=== PATIENT | female | born 2000 | race Caucasian/White ===

== ENCOUNTER → 2022-03-18 09:19 | Outpatient (BNVA) | payer MEDICAID, SELFPAY | PROVIDERS: Visit Provider Obstetrics & Gynecology | DX: Z34.90 Encounter for supervision of normal pregnancy, unspecified, unspecified trimester (principal) | CPT/HCPCS: 81000 ==

== ENCOUNTER → 2022-03-27 14:04 | Outpatient (BNVA) | payer MEDICAID, SELFPAY | PROVIDERS: Visit Provider Obstetrics & Gynecology | DX: Z34.00 Encounter for supervision of normal first pregnancy, unspecified trimester (principal) | CPT/HCPCS: 81000; 87081; 87086 ==

== ENCOUNTER 2022-04-06 21:54 | Inpatient (IN) | payer MEDICAID, SELFPAY ==
[2022-04-06] VITALS (21 sets, daily range): BP systolic 132–196; BP diastolic 77–104; PULSE 57–96; RESP 15; TEMP 35.7; BMI 39.4
[2022-04-06 20:39] LABS: Nitrazine Paper, PH Negative
[2022-04-06 21:06] LABS: Basophils % 0.2 %; Eosinophils # 0.1 10^3/uL (0.0-0.8); Hematocrit 34.4 % (37.0-47.0); Hemoglobin 12.1 g/dL (11.5-15.3); Lymphocytes # 1.6 10^3/uL (0.8-4.8); Lymphocytes % 18.9 %; Mean Corpuscular HGB Conc 35.2 g/dL (30.0-36.0); Mean Corpuscular Hemoglobin 29.4 pg (28.0-34.0); Mean Corpuscular Volume 83.7 fl (81-99); Monocytes # 0.8 10^3/uL (0.2-0.9); Monocytes % 9.6 %; Neutrophils # 6.05 10^3/uL (1.8-7.7); Neutrophils % 69.8 %; Nucleated Red Blood Cells % 0 %; Platelet Count 307 10^3/cmm (130-400); Red Blood Count 4.11 10^6/uL (4.1-5.3); White Blood Count 8.7 10^3/uL (4.0-10.0)
[2022-04-06 21:10] LABS: Add Urine Culture? No; Add Urine Microscopic? YES; Bacteria Urine TRACE /hpf; Bilirubin Urine 1+ (Negative); Blood Urine 3+ (Negative); Glucose Urine UA Norm (Normal); Ketones Urine 1+ (Negative); Leukocyte Esterase Urine Negative (Negative); Mucus Urine 1+ /hpf; Nitrate Urine Negative (Negative); Protein Urine 3+ (Negative); Squamous Epithelial Cell Urine 0-4 /hpf (0-5); Urine Appearance SL Hazy (CLEAR); Urine Color Yellow (Yellow); Urobilinogen Urine 4 mg/dL (Negative); WBC Urine 0-4 /hpf (0-5); pH Urine 6 (5-7)
[2022-04-06 21:21] LABS: Alanine Aminotransferase 8 U/L (0-33); Albumin Level 3.3 g/dL (3.5-5.2); Alkaline Phosphatase 140 IU/L (35-105); Aspartate Amino Transferase 14 U/L (0-32); Blood Urea Nitrogen 9 mg/dL (6-20); Calcium 8.7 mg/dL (8.5-10.5); Carbon Dioxide 21 mmol/L (22-29); Chloride 102 mmol/L (98-107); Globulin 2.6 g/dL (1.3-4.6); Glomerular Filtration Rate 280.8 mL/min (90-130); Glucose 75 mg/dL (65-115); Osmolality Calculated 277 mOsm/kg (285-295); Sodium 135 mmol/L (136-145); Total Bilirubin 0.2 mg/dL (0.15-1.2); Total Protein 5.9 g/dL (6.6-8.7); Uric Acid 3.8 mg/dL (2.4-5.7)
[2022-04-06 21:22] LABS: Urine Creatinine 196 mg/dL (28-217)
[2022-04-06 21:33] LABS: UPRO/UCREAT Ratio 2.68 mg/mg CR; Urine Protein Random 525 mg/dL
[2022-04-06] MEDS: labetalol 5 mg/mL SDV 20mL 20 MG IVP (22:23)
[2022-04-06] MEDS: dextrose 5%-lactated ringers 1,000 ML 125 ML IV (22:44)
[2022-04-06] MEDS: magnesium sulfate premix 4 GM/100 ML PREMIX IV (22:44)
[2022-04-06] MEDS: labetalol 5 mg/mL SDV 20mL 40 MG IVP (22:55)
[2022-04-06] MEDS: magnesium sulfate premix 20 GM/500 ML BAG IV (23:04)
[2022-04-07] VITALS (117 sets, daily range): BP systolic 104–179; BP diastolic 55–102; PULSE 63–96; RESP 15–17; TEMP 36.4; O2SAT 99–100
[2022-04-07] MEDS: oxytocin 30 UNIT/500 ML BAG IV (00:03)
[2022-04-07] MEDS: labetalol 5 mg/mL SDV 20mL 40 MG IVP ×2 (01:03→17:55)
[2022-04-07] MEDS: lactated ringers 1,000 ML 999 ML IV (02:15)
--- NOTE | 2022-04-07 02:42 | P.ANESASSM_ITS ---
Pre-Anesthetic Assessment Height/Weight: Height 1.55 m Weight 94.801 kg Temp Pulse Resp BP 96.3 F L 73 15 132/86 04/06/22 20:00 04/07/22 02:30 04/06/22 19:55 04/07/22 02:30 Preop Diagnosis: IUP epidural Familial anesthetic complications: none Was Beta Mayo taken within 24 hours: N/A Was Clonidine taken within 24 hours: N/A Last intake: 1400- currently ice chips Social No alcohol and No tobacco Exam alert and oriented x 3 Airway Submandibular: within normal limits Cervical ROM: within normal limits Mallampati: Class II Dentition: full History/ROS No significant history except as noted Pulmonary None reported CV/HEM Hypertension (Pre-E) None reported Hepatic None reported GI Gastroesophageal Reflux Disease Metabolic None reported Musc/skel None reported Neuropsych None reported Anesthetic Plan Anesthesia: Anesthesia Evaluation and Regional (specify below) Risk of > 500 ml blood loss (7ml/kg in children): No Medications/Allergies Home Medications Medication Instructions Recorded Confirmed Last Taken Type prenat.vits,piyush,wqm-wbkw-lefud 1 tab PO DAILY 04/06/22 04/06/22 3 Days Ago History ~04/03/22 Allergies Allergy/AdvReac Type Severity Reaction Status Date / Time kiwi Allergy Severe ALGY-Swell Verified 04/06/22 20:21 Lip/Tongue/Throat Current Medications Generic Name Dose Route Start Last Admin Trade Name Freq PRN Reason Stop Dose Admin Dextrose/Lactated Ringer's 1,000 mls @ 125 mls/hr 04/06/22 22:00 04/06/22 22:44 Dextrose 5%-Lactated Ringers IV 125 mls/hr .Q8H CLAY Administration Magnesium Sulfate 20 gm in 500 mls @ 50 mls/hr 04/06/22 22:00 04/06/22 23:04 Magnesium Sulfate Premix IV 50 mls/hr .Q10H CLAY Administration Oxytocin 30 unit in 500 mls @ 1 mls/hr 04/06/22 22:00 04/07/22 02:00 Pitocin IV 5 milliunit/min .Q24H CLAY 5 mls/hr Titration Protocol 1 MILLIUNIT/MIN Labetalol HCl 20 mg 04/06/22 21:49 04/06/22 22:23 Labetalol 5 Mg/Ml Sdv 20ml IVP 20 mg PRN PRN Administration HYPERTENSION Protocol Labetalol HCl 40 mg 04/06/22 21:49 04/07/22 01:03 Labetalol 5 Mg/Ml Sdv 20ml IVP 40 mg PRN PRN Administration HYPERTENSION Protocol [facility] Anesthesia Medical History Anxiety Arthritis Depression GERD (gastroesophageal reflux disease) Surgical History History of tonsillectomy and adenoidectomy Benjamin teeth removed Family History Father Diabetes type 2 Grandmother Breast cancer Maternal Family/Other Diabetes Maternal Aunt Mother Bleeding disorder Anemia Denies family history of CAD (coronary artery disease) Clotting disorder Hyperlipidemia Chronic kidney disease (CKD) Cancer Hypertension Thyroid disease Stroke Female Reproductive History : 1 Data Anesthesia : 04/06/22 20:42 04/06/22 20:42 Short CBC 04/06/22 Range/Units 20:42 WBC 8.7 (4.0-10.0) 10^3/uL Hgb 12.1 (11.5-15.3) g/dL Hct 34.4 L (37.0-47.0) % MCV 83.7 (81-99) fl Plt Count 307 (130-400) 10^3/cmm Neut % (Auto) 69.8 % Neut # (Auto) 6.05 (1.8-7.7) 10^3/uL BMP 04/06/22 20:42 Sodium 135 L Potassium 4.0 Chloride 102 Carbon Dioxide 21 L BUN 9 Creatinine 0.3 L Glucose 75 Calcium 8.7 Liver Function 04/06/22 Range/Units 20:42 Total Bilirubin 0.2 (0.15-1.2) mg/dL AST 14 (0-32) U/L ALT 8 (0-33) U/L Alkaline Phosphatase 140 H (35-105) IU/L Albumin 3.3 L (3.5-5.2) g/dL Urine 04/06/22 Range/Units 20:42 Urine Color Yellow (Yellow) Urine Appearance Sl hazy (CLEAR) Urine pH 6 (5-7) Ur Specific [place] 1.020 (1.005-1.030) Urine Protein 3+ H (Negative) Urine Glucose (UA) Norm (Normal) Urine Ketones 1+ H (Negative) Urine Nitrate Negative (Negative) Urine Bilirubin 1+ H (Negative) Ur Leukocyte Esterase Negative (Negative) Urine RBC 5-10 H (0-2) /hpf Urine WBC 0-4 H (0-5) /hpf Cardiac Studies: No Data to Display
--- NOTE | 2022-04-07 03:20 | P.ANES_ITS ---
Anesthesia Procedures Procedure/Date: 04/07/22 Epidural: Time Out Performed: Yes Consents Signed: Procedure Consent Consent: from patient, risks and benefits reviewed and patient agrees to proceed Lumbar Level: L3-L4 Epidural position: sitting Epidural procedure: sterile prep of area, 1% lidocaine to numb the area, 18 g needle, negative for p aresthesia passed, neg for paresthesia, test dose given, 1.5% xylocaine 1:200k epi (2%lido with 1:200k epi from pharmacy), no systemic response, sterile dressing applied, L.U.D. no apparent complications and 0.2% Ropiavacaine @ mls/hr (11) Additional Comments: Neg blood or CSF return. GRAHAM at 7, taped at 13 at skin.
[2022-04-07] MEDS: alum-mag-hydroxide-sime 30 mL UDC PO (04:43)
[2022-04-07] MEDS: ondansetron 2 mg/ML SDV 2 mL 4 MG IVP (04:43)
[2022-04-07 04:59] LABS: Magnesium Level (OB Only) 4.4 mg/dL (5.0-7.5)
--- NOTE | 2022-04-07 06:55 | P.HPUD_ITS ---
Labor & Delivery H&P Update Date of Procedure: April 07, 2022 Date H&P Performed: 03/27/22 H&P update information: I have reviewed H&P completed within last 30 days, I have examined patient prior to procedure, Changes to prior documentation as noted here and H&P is in [facility] EMR on date indicated Changes to previous documentation: Patient came in with concern for spontaneous rupture of membranes however work- up was negative with negative nitrazine and intact membranes palpated however patient's blood pressure was noted to be elevated in the 140s to 160s over 90s to 100's. Patient denied any preeclamptic symptoms. Lab work done was within normal limits except for protein creatinine ratio which is elevated--2.68. This give her the diagnosis of preeclampsia and given that she was 37 weeks and 5 days decision was made to admit patient and induced for preeclampsia at. Magnesium sulfate was started for seizure prophylaxis. Admission Diagnosis: Preop diagnosis: IUP
[2022-04-07] MEDS: dextrose 5%-lactated ringers 1,000 ML 67 ML IV (07:17)
[2022-04-07] MEDS: magnesium sulfate premix 20 GM/500 ML BAG IV ×2 (07:18→17:21)
--- NOTE | 2022-04-07 07:56 | P.PN_ITS ---
Subjective Subjective: Subjective- Ms Patiño is a 22-year-old 1 para 0 at 37 weeks and 6 days who presented to labor and delivery on 04/06/2022 with reports of leaking of fluid. Evaluation for this was negative with negative nitrazine and intact membranes palpated however patient's blood pressure was noted to be elevated in the 140s to 160s over 90s to 100's. Patient denied any preeclamptic symptoms. Lab work done was within normal limits except for protein creatinine ratio which is elevated--2.68. This give her the diagnosis of preeclampsia and given that she was 37 weeks and 5 days decision was made to admit patient and induced for preeclampsia at. Magnesium sulfate was started for seizure prophylaxis. SCDs were placed for DVT prophylaxis. GBS was negative. She received IV labetalol for a total of 3 doses as her blood pressure was in the severe range and with this her blood pressure returned to normal. Pitocin was started for induction of labor after counseling. tracing was category 1 she had no contractions and cervix was 1 cm 50% and -4 station, cephalic. Pitocin was started at midnight. At about 2 AM patient reported having more pain and desired an epidural. At this time her cervix was 2 cm 50% and -3 station. Epidural was placed after which patient was comfortable. Overnight patient's blood pressures overall remain normal and urine output was adequate and she denied any preeclamptic symptoms. Magnesium sulfate level overnight was 4.4 and plan was to repeat it in 4 hours. This morning patient feels fine and other than being a little uncomfortable on the magnesium sulfate has no concerns. She does not feel contractions and denies any other discomfort. Pitocin is at 10 this morning. Objective- Blood pressure-121/65 mmHg Pulse-84 beats per minute Temperature-96.3 Fahrenheit Abdomen-gravid, nontender, obese Sterile vaginal exam-3 cm, 50%, -3, ballotable EFM-120, moderate variability, accelerations present, no decelerations [place]-contractions every 2 to 3 minutes Assessment: 22-year-old 1 para 0 at 37 weeks and 6 days Severe preeclampsia on magnesium sulfate Induction of labor for severe preeclampsia GBS negative Late transfer of care at [address] Tinajero--care in [place] Obesity with a BMI of 39.5 GERD on medication Plan: Continue magnesium sulfate for seizure prophylaxis-follow magnesium levels to ensure it is reached therapeutic levels. -Continue strict I's and O's -IV blood pressure medication as needed per protocol -Continuous EFM and tocometry -Continue SCDs for DVT prophylaxis -Hold Pitocin as she is having adequate contractions and reassess cervix. Vitals/I&O/Wt Last Vital Signs Temp 96.3 F L 04/06/22 20:00 Pulse 86 04/07/22 07:42 Resp 16 04/07/22 07:15 BP 121/65 04/07/22 07:42 Pulse Ox 100 04/07/22 03:13 04/06/22 04/07/22 04/07/22 22:59 06:59 14:59 Intake Total 1890.933 / 1890.933 649.034 / 649.034 Output Total 1433 / 1433 175 / 175 Balance 457.933 / 457.933 474.034 / 474.034 Weight last 48 hrs Weight 209 lb Physical Exam Urinary Catheter Management: Latex Free: Cath Placed During This Visit: yes Reason for Continuing Indwelling Catheter: Accurate Measurement of Urinary Output in Critically Ill Patients Urinary Catheter Date of Insertion: 04/06/22 Data : 04/06/22 20:42 04/06/22 20:42 Attestations Medical Necessity Statement*: Patient will need to stay more than 2 midnights to deliver and recover from delivery Coding Level of Care Code Acute Market Analysis Director for Maribel Schmitt
[2022-04-07 09:57] LABS: Magnesium Level (OB Only) 5.9 mg/dL (5.0-7.5)
[2022-04-07] MEDS: miSOPROStol 100 mcg tablet 25 MCG VAGINAL ×2 (15:14→20:10)
[2022-04-07] MEDS: labetalol 5 mg/mL SDV 20mL 20 MG IVP (17:35)
--- NOTE | 2022-04-07 17:54 | PC.NURSE ---
Called lab regarding magnesium level, Mike in lab states he will get it going.
[2022-04-07 18:13] LABS: Magnesium Level (OB Only) 6.5 mg/dL (5.0-7.5)
[2022-04-07] MEDS: dextrose 5%-lactated ringers 1,000 ML 75 ML IV (22:00)
[2022-04-07 22:26] LABS: Magnesium Level (OB Only) 6.2 mg/dL (5.0-7.5)
[2022-04-08] VITALS (75 sets, daily range): BP systolic 109–178; BP diastolic 55–118; PULSE 64–114; RESP 17–18; TEMP 36.6
[2022-04-08] MEDS: oxytocin 30 UNIT/500 ML BAG IV (00:45)
--- NOTE | 2022-04-08 06:51 | P.PCNOB_ITS ---
Delivery Note: Date of delivery: April 08, 2022 Pre-delivery diagnoses: iup@[id number], induction for severe preeclampsia Post-delivery diagnoses: same Procedure: Delivering Physician: Lior Estimated blood loss (mL): 250 Findings: term male in the ANDRESSA presentation. Large left sulcus tear. Pre-Delivery Course: The patient presented to the hospital with complaint of SROM. Her membranes were intact, however, she had severe blood pressures with a urine protein/creatinine ratio of 2.6. She was admitted and started on pitocin. She was switched to cytotec. She received an epidural for pain management. After 4 doses of cytotec, she had pitocin started. She had SROM and began involuntarily pushing at 7 cm. The baby was having decelerations, which resolved once her cervix was completely dilated. She continued to push. Delivery: The patient had complete cervical dilation and began to push. The head delivered in the ANDRESSA position over an intact perineum under epidural anesthesia. The nose and mouth were bulb suctioned. The shoulders and body delivered atraumatically. The baby was placed onto the mother's abdomen. The cord was clamped and cut. Cord blood was obtained. The placenta delivered spontaneously. It was inspected and found to be intact. Inspection of the perineum revealed a second-degree perineal laceration with a large left sulcus tear. It was repaired in the usual fashion. There was excellent hemostasis after repair. Estimated blood loss 250 mL. Apgars on baby were 7 at 1 minute a nd 9 at 5 minutes. Weight of baby is 6 pounds. Mother and baby were stable post delivery. History History History 1 Term Miscarriages/Ectopic Living Children Coding Level of Care Code Acute Melt Helper for Maribel Schmitt
[2022-04-08] MEDS: lidocaine 2% INJ 20 mL INJECTION (06:58)
[2022-04-08 09:36] LABS: Magnesium Level (OB Only) 6.4 mg/dL (5.0-7.5)
[2022-04-08] MEDS: docusate sodium 100 mg Capsule PO ×2 (09:48→18:35)
[2022-04-08] MEDS: prenatal vitamin Capsule 1 CAP PO (09:48)
[2022-04-08] MEDS: benzocaine-menthol 78 gm Canister 1 SPRAY TOPICAL (09:48)
[2022-04-08] MEDS: lanolin oint 7 gm 1 APPLIC TOPICAL (09:48)
[2022-04-08] MEDS: ibuprofen 800 mg tablet PO ×3 (09:48→21:24)
--- NOTE | 2022-04-08 11:00 | PC.NURSE ---
Pt up to chair at bedside. Mey care performed and gown changed. Bed mattress cover placed and complete linen change. Pt back to bed and holding baby. Instructed pt not to get up without assistance.
[2022-04-08] MEDS: magnesium sulfate premix 20 GM/500 ML BAG IV ×2 (11:25→21:29)
[2022-04-08] MEDS: dextrose 5%-lactated ringers 1,000 ML 75 ML IV (11:25)
--- NOTE | 2022-04-08 16:40 | PC.NURSE ---
pt ambulated to bathroom, torsten care performed, gown and pad/underwear changed. pt back to bed without difficulty. assisted pt to get baby latched to right side with football hold.
--- NOTE | 2022-04-08 16:40 | ANE.PACU2 ---
Inpatient post-anesthesia follow up: Airway intact: Yes Vital signs: Temperature 97.8 F Pulse Rate 97 Respiratory Rate 17 Blood Pressure 129/63 Pulse Oximetry 100 Oxygen Delivery Me thod Room Air Oxygen Flow Rate Fraction of Inspir ed Oxygen Hydration adequate: Yes Nausea and vomiting: No Pain level: 1 Mental status: Baseline
[2022-04-08 17:00] LABS: Magnesium Level (OB Only) 6.7 mg/dL (5.0-7.5)
[2022-04-08 22:00] LABS: Hematocrit 23.6 % (37.0-47.0); Hemoglobin 7.8 g/dL (11.5-15.3); Mean Corpuscular HGB Conc 33.1 g/dL (30.0-36.0); Mean Corpuscular Hemoglobin 29.5 pg (28.0-34.0); Mean Corpuscular Volume 89.4 fl (81-99); Mean Platelet Volume 10.8 fL (7.4-10.4); Platelet Count 304 10^3/cmm (130-400); Red Blood Count 2.64 10^6/uL (4.1-5.3); Red Cell Distribution Width 13.6 % (12.1-15.1)
[2022-04-08 22:35] LABS: Magnesium Level (OB Only) 6.6 mg/dL (5.0-7.5)
[2022-04-09] VITALS (13 sets, daily range): BP systolic 111–159; BP diastolic 56–90; PULSE 71–109; RESP 15–18; TEMP 36.9–37.2; O2SAT 100
[2022-04-09 03:56] LABS: Magnesium Level (OB Only) 6.9 mg/dL (5.0-7.5)
[2022-04-09] MEDS: docusate sodium 100 mg Capsule PO ×2 (09:09→20:24)
[2022-04-09] MEDS: ibuprofen 800 mg tablet PO ×3 (09:09→20:24)
[2022-04-09] MEDS: prenatal vitamin Capsule 1 CAP PO (09:09)
--- NOTE | 2022-04-09 16:47 | PM.PN ---
Subjective Subjective: The patient is doing well. Magnesium sulfate has just been discontinued after 24 hours. Blood pressures have been maki. Vitals/I&O/Wt Last Vital Signs Temp 99.0 F 04/09/22 14:00 Pulse 104 H 04/09/22 15:08 Resp 15 04/09/22 15:08 BP 147/85 04/09/22 15:08 Pulse Ox 100 04/09/22 14:00 O2 Del Method 04/09/22 14:00 04/09/22 04/09/22 04/09/22 06:59 14:59 22:59 Output Total 960 / 3790 400 / 400 Balance -960 / -960.817 -400 / -400 Physical Exam Narrative: The patient has no concerns this morning. Const: COMMON NORMALS: no acute distress, patient oriented x3, no limitations, healthy appearing, alert and well nourished GENERAL APPEARANCE: cooperative, comfortable, well kempt and well developed ORIENTATION/CONSCIOUSNESS: Yes awake, Yes oriented to person, Yes oriented to place and Yes oriented to time Resp: COMMON NORMALS: normal respiratory effort EFFORT & INSPECTION: Yes able to speak in complete sentences GI: COMMON NORMALS: Soft to palpation and non-tender PALPATION: Yes Soft to palpation Extremity: COMMON NORMALS: no calf tenderness Neuro: COMMON NORMALS: patient oriented x3 SENSORIUM/ORIENTATION: Yes alert, Yes oriented to person, Yes oriented to place and Yes oriented to time Psych: COMMON NORMALS: mental status grossly normal, Normal thought process present, cooperative, normal affect and speech normal APPEARANCE: Yes well kempt SPEECH: Yes normal speech THOUGHT PROCESS: Normal thought process present Urinary Catheter Management: Latex Free: Cath Placed During This Visit: yes, but has since been removed by the nurse Reason for Continuing Indwelling Catheter: Decision to DC Catheter Urinary Catheter Date of Insertion: 04/06/22 Date Urinary Catheter Removed: 04/08/22 Time Urinary Catheter Discontinued: 05:45 Ayoub Latex: Cath Placed During This Visit: yes Reason for Continuing Indwelling Catheter: Accurate Measurement of Urinary Output in Critically Ill Patients Urinary Catheter Date of Insertion: 04/08/22 Urinary Catheter Time of Insertion: 07:00 Data : 04/08/22 21:45 04/06/22 20:42 Micro: Microbiology 04/06/22 20:42 Urine Culture - Final Urine,Clean Catch Attestations Medical Necessity Statement*: She will be here for two midnights Coding Level of Care Code Acute Senior Manufacturing Test Engineer for Maribel Schmitt
[2022-04-09] MEDS: NIFEdipine ER (24 hr) 30 mg Tablet PO (17:00)
--- NOTE | 2022-04-10 08:07 | P.DS_ITS ---
Discharge Providers Date of Admission: 04/06/22 21:54 Date of Discharge: April 09, 2022 Attending Provider at Admission: Jaquelin Stauffer MD Attending Provider at Discharge: Ella Tinajero MD Reason for Visit Reason for Visit: POSSIBLE SROM Hospital Course Hospital Course The patient was admitted for induction for severe preeclampsia. She was placed on Mag sulfate. She had spontaneous delivery of a term . The mag sulfate was continued for 24 hours post . Once the magnesium was discontinued, her blood pressures remained in the elevated range. She was started on Procardia 30 mg daily. Blood pressures were normal after medication. She requested discharge that evening. She will follow up for a blood pressure check in 1 week Physical Exam Narrative: The patient has no concerns today. She wants to be discharged. Const: COMMON NORMALS: no acute distress, patient oriented x3, no limitations, healthy appearing, alert and well nourished GENERAL APPEARANCE: cooperative, comfortable, well kempt and well developed ORIENTATION/CONSCIOUSNESS: Yes awake, Yes oriented to person, Yes oriented to place and Yes oriented to time Resp: COMMON NORMALS: normal respiratory effort EFFORT & INSPECTION: Yes able to speak in complete sentences GI: COMMON NORMALS: Soft to palpation and non-tender PALPATION: Yes Soft to palpation Extremity: COMMON NORMALS: no calf tenderness Neuro: COMMON NORMALS: patient oriented x3 SENSORIUM/ORIENTATION: Yes alert, Yes oriented to person, Yes oriented to place and Yes oriented to time Psych: APPEARANCE: Yes well kempt Urinary Catheter Management: Latex Free: Cath Placed During This Visit: yes, but has since been removed by the nurse Reason for Continuing Indwelling Catheter: Decision to DC Catheter Urinary Catheter Date of Insertion: 04/06/22 Date Urinary Catheter Removed: 04/08/22 Time Urinary Catheter Discontinued: 05:45 Ayoub Latex: Cath Placed During This Visit: yes Reason for Continuing Indwelling Catheter: Accurate Measurement of Urinary Output in Critically Ill Patients Urinary Catheter Date of Insertion: 04/08/22 Urinary Catheter Time of Insertion: 07:00 Discharge Data Studies Completed and Pending Laboratory Results WBC 13.0 10^3/uL (4.0-10.0) H 04/08/22 21:45 RBC 2.64 10^6/uL (4.1-5.3) L 04/08/22 21:45 Hgb 7.8 g/dL (11.5-15.3) L 04/08/22 21:45 Hct 23.6 % (37.0-47.0) L 04/08/22 21:45 MCV 89.4 fl (81-99) 04/08/22 21:45 MCH 29.5 pg (28.0-34.0) 04/08/22 21:45 MCHC 33.1 g/dL (30.0-36.0) 04/08/22 21:45 RDW 13.6 % (12.1-15.1) 04/08/22 21:45 Plt Count 304 10^3/cmm (130-400) 04/08/22 21:45 MPV 10.8 fL (7.4-10.4) H 04/08/22 21:45 Neut % (Auto) 69.8 % 04/06/22 20:42 Lymph % (Auto) 18.9 % 04/06/22 20:42 [place] % (Auto) 9.6 % 04/06/22 20:42 Eos % (Auto) 1.0 % 04/06/22 20:42 Baso % (Auto) 0.2 % 04/06/22 20:42 Neut # (Auto) 6.05 10^3/uL (1.8-7.7) 04/06/22 20:42 Lymph # (Auto) 1.6 10^3/uL (0.8-4.8) 04/06/22 20:42 [place] # (Auto) 0.8 10^3/uL (0.2-0.9) 04/06/22 20:42 Eos # (Auto) 0.1 10^3/uL (0.0-0.8) 04/06/22 20:42 Baso # (Auto) 0.0 10^3/uL (0.0-0.1) 04/06/22 20: Nucleated RBC % (auto) 0 % 04/06/22: Nucleated RBCs # 0.0 /100WBC 04/06/22 20:42 Sodium 135 mmol/L (136-145) L 04/06/22 20:42 Potassium 4.0 mmol/L (3.5-5.1) 04/06/22 20:42 Chloride 102 mmol/L (98-107) 04/06/22 20:42 Carbon Dioxide 21 mmol/L (22-29) L 04/06/22 20:42 Anion Gap 16.0 (5-19) 04/06/22 20:42 BUN 9 mg/dL (6-20) 04/06/22 20:42 Creatinine 0.3 mg/dL (0.5-0.9) L 04/06/22 20:42 GFR Calculation 280.8 mL/min (90-130) H 04/06/22 20: Glucose 75 mg/dL (65-115) 04/06/22 20: Calculated Osmolality 277 mOsm/kg (285-295) L 04/06/22 20: Uric Acid 3.8 mg/dL (2.4-5.7) 04/06/22 20: Calcium 8.7 mg/dL (8.5-10.5) 04/06/22 20: Magnesium 6.9 mg/dL (5.0-7.5) 04/09/22 03:09 Total Bilirubin 0.2 mg/dL (0.15-1.2) 04/06/22 20: AST 14 U/L (0-32) 04/06/22 20:42 ALT 8 U/L (0-33) 04/06/22 20:42 Alkaline Phosphatase 140 IU/L (35-105) H 04/06/22 20:42 Total Protein 5.9 g/dL (6.6-8.7) L 04/06/22 20: Albumin 3.3 g/dL (3.5-5.2) L 04/06/22 20: Globulin 2.6 g/dL (1.3-4.6) 04/06/22 20:42 Urine Color Yellow (Yellow) 04/06/22 20:42 Urine Appearance Sl hazy (CLEAR) 04/06/22 20: Urine pH 6 (5-7) 04/06/22 20: Ur Specific [place] 1.020 (1.005-1.030) 04/06/22 20: Urine Protein 3+ (Negative) H 04/06/22 20:42 Urine Glucose (UA) Norm (Normal) 04/06/22 20: Urine Ketones 1+ (Negative) H 04/06/22 20: Urine Blood 3+ (Negative) H 04/06/22 20:42 Urine Nitrate Negative (Negative) 04/06/22 20:42 Urine Bilirubin 1+ (Negative) H 04/06/22 20:42 Urine Urobilinogen 4 mg/dL (Negative) H 04/06/22 20:42 Ur Leukocyte Esterase Negative (Negative) 04/06/22 20:42 Urine RBC 5-10 /hpf (0-2) H 04/06/22 20:42 Urine WBC 0-4 /hpf (0-5) H 04/06/22 20:42 Ur Squamous Epith Cells 0-4 /hpf (0-5) H 04/06/22 20:42 Amorphous Sediment Not Reportable 04/06/22 20:42 Urine Bacteria Trace /hpf (NONE) 04/06/22 20:42 Urine Mucus 1+ /hpf 04/06/22 20:42 U Random Total Protein 525 mg/dL 04/06/22 20:42 Urine Creatinine 196 mg/dL (28-217) 04/06/22 20:42 Protein/Creatinin Ratio 2.68 mg/mg CR 04/06/22 20:42 Vitals Last Vital Signs Temp 98.4 F 04/09/22 20:53 Pulse 94 04/09/22 20:53 Resp 16 04/09/22 20:53 BP 141/71 04/09/22 20:53 Pulse Ox 100 04/09/22 14:00 O2 Del Method 04/09/22 14:00 Discharge Plan Discharge Patient Disposition: Home Prescriptions: New nifedipine 30 mg tablet extended release 30 mg PO DAILY Qty: 30 0RF Continued prenat.vits,piyush,dps-vahc-kpjbw Tablet 1 tab PO DAILY Discharge Orders: Discharge Order (Routine); Ordered 04/09/22 Ordered By: Ella Tinajero Patient Instructions: and Nipple Soreness (GEN), and Breast Engorgement (GEN), and Plugged Ducts (GEN), Preeclampsia During (GEN), Preeclampsia and Eclampsia After Delivery (GEN), OB Discharge Report, OB Food/Drug Interaction Guide, OB Care at Home, Opioid Safety, OB Home Care, OB Proud Parent Packet, OB Vaginal Deliveries - [facility] Discharge Attestations Time Spent in Discharge Care*: less than 30 min Quality Metrics Clinical Quality Measures [ No reported AMI, CVA or VTE this stay] Coding Level of Care Code Acute Chg FW DC note
== END 2022-04-09 22:04 | disposition home or self-care (01) | DRG 807 ==
LOC: OPOB 21:54 → OBGYN 21:54
PROVIDERS: Obstetrics & Gynecology; Admitting Provider Obstetrics & Gynecology; Visit Provider Obstetrics & Gynecology
DX: O14.14 Severe pre-eclampsia complicating childbirth (principal); Z37.0 Single live birth; O76 Abnormality in fetal heart rate and rhythm complicating labor and delivery; O99.62 Diseases of the digestive system complicating childbirth; K21.9 Gastro-esophageal reflux disease without esophagitis; O70.1 Second degree perineal laceration during delivery; O99.214 Obesity complicating childbirth; E66.9 Obesity, unspecified; Z3A.37 37 weeks gestation of pregnancy
CPT/HCPCS: 36415; 51702; 59025; 80053; 81001; 82570; 83735; 83986; 84156; 84550; 85025; 85027; 87086; 99211; J2405; J2795; J3475; J3490

== ENCOUNTER 2022-05-03 20:22 | Emergency (ER) | payer MEDICAID, SELFPAY ==
[2022-05-03 20:28] VITALS: BP 105/69; PULSE 89; RESP 16; TEMP 36.7; O2SAT 100
--- NOTE | 2022-05-03 20:32 | ECG_ITS ---
[facility] Test Date: 2022-05-03 Pat Name: Fariha Patiño Department: Room: Gender: Female Negative Developer: : 2000 Requested By: Christiano Sifuentes Order Number: [id number] Glenny MD: Katie Thompson M.D. Measurements Intervals [place] Rate: 87 P: 31 MA: 150 QRS: 61 QRSD: 86 T: 38 QT: 327 QTc: 395 Interpretive Statements SINUS RHYTHM No previous ECG available for comparison Electronically Signed On 05-04-2022 7:56:59 CDT by Katie Thompson M.D. [email or web address]
--- NOTE | 2022-05-03 21:23 | XRR_ITS ---
PROCEDURE INFORMATION: Exam: XR Chest Exam date and time: 05/03/2022 9:28 PM Age: 22 years old Clinical indication: Pain; Chest pressure; Additional info: Cp TECHNIQUE: Imaging protocol: Radiologic exam of the chest. Views: 1 view. COMPARISON: No relevant prior studies available. FINDINGS: Lungs: Unremarkable. No consolidation. Pleural spaces: Unremarkable. No pleural effusion. No pneumothorax. Heart/Mediastinum: Unremarkable. No cardiomegaly. Bones/joints: Unremarkable. XR/XR chest 1V portable 40004 IMPRESSION: No acute findings.
[2022-05-03 21:31] VITALS: BP 125/72; PULSE 95; RESP 16; O2SAT 100
--- NOTE | 2022-05-03 21:32 | W.ED.CHESTPA ---
HPI - Chest Pain General: Chief Complaint: Chest Pain Stated Complaint: chest and back pain Time Seen by Provider: 05/03/22 21:22 History of Present Illness: Patient is a 22-year-old female comes to the ED with chest pain and back pain. Patient has a history of GERD but is not currently taking any acid reflux medications. Patient also delivered baby back on April 08 and had preeclampsia. patient says her symptoms started at rest around 9:00 this morning. The pain started after she ate breakfast. She said she was having chest pain that was located in the lower middle of her chest that she described as an aching type pain. She was also having pain that radiated into the middle of her back as well. Back pain would worsen when laying in certain positions. She took an ibuprofen this morning and her chest pain and back pain improved greatly. She then took a nap and later in the day the pain came back. She took another ibuprofen at 7 PM and says that her chest pain and back pain has gotten better since she took the ibuprofen. Associated symptoms: Reports dyspnea; Deny abdominal pain, fever(s), nausea, palpitations or vomiting Review of Systems Const: Denies: fever(s), chills or fatigue Eyes: Denies: change in vision or eye discomfort ENMT: Denies: throat pain, odynophagia, nasal discharge or nasal congestion Card: Reports: chest pain; Denies: palpitations, edema, swelling of feet/ankles, dyspnea on exertion or orthopnea Resp: Reports: dyspnea; Denies: productive cough or non-productive cough GI: Denies: abdominal pain, nausea, vomiting, diarrhea, constipation or hematochezia : Denies: flank pain, dysuria or hematuria Musc: Reports: back pain; Denies: neck pain or extremity swelling Skin/Breast: Denies: rash or new lesions Neuro: Denies: headache(s), numbness in extremities or weakness in extremities PFSH ED PFSH: Medical History Anxiety Arthritis Depression GERD (gastroesophageal reflux disease) Surgical History History of tonsillectomy and adenoidectomy [place] teeth removed Family History Father Diabetes type 2 Grandmother Breast cancer Maternal Family/Other Diabetes Maternal Aunt Mother Bleeding disorder Anemia Denies family history of CAD (coronary artery disease) Clotting disorder Hyperlipidemia Chronic kidney disease (CKD) Cancer Hypertension Thyroid disease Stroke Physical Exam Const: COMMON NORMALS: no acute distress, patient oriented x3 and alert GENERAL APPEARANCE: cooperative and comfortable HENMT: COMMON NORMALS: normocephalic HEAD & SCALP: normocephalic MOUTH: Normal oral and palatal mucosa present THROAT: posterior oropharynx normal and uvula midline Neck/C-Spine: COMMON NORMALS: supple GENERAL: Yes normal visual inspection Resp: COMMON NORMALS: normal respiratory effort, No retractions, No use of accessory muscles and clear to auscultation bilaterally AUSCULTATION: clear to auscultation bilaterally Cardio: COMMON NORMALS: regular rate, regular rhythm, S1 normal heart sound present, S2 normal heart sound present, No gallops present (Cardio), No clicks present (Cardio), No murmurs present (Cardio) and Peripheral pulses 2+ throughout RATE: regular rate RHYTHM: regular rhythm HEART SOUNDS: S1 normal heart sound present and S2 normal heart sound present PERIPHERAL PULSES: Peripheral pulses 2+ throughout GI: COMMON NORMALS: Normal to inspection, nondistended, normoactive bowel sounds present, Soft to palpation, non-tender and no masses PALPATION: Yes Soft to palpation : COMMON NORMALS: Yes no CVA tenderness BLADDER/KIDNEY EXAM: Yes no CVA tenderness Back/Pelvis: COMMON NORMALS: no CVA tenderness Extremity: COMMON NORMALS: normal to inspection Neuro: COMMON NORMALS: patient oriented x3 SENSORIUM/ORIENTATION: Yes alert GAIT: Yes Normal gait present Skin: GENERAL SKIN EXAM: dry skin Course ED course: After patient received GI cocktail her symptoms of chest pain and back pain resolved completely. She has no more chest pain here in the ED. She feels a lot better and is ready to be discharged home. Vital Signs: Vital signs: Vital Signs Temperature 98.0 F 05/03/22 20:28 Pulse Rate 94 05/03/22 23:10 Respiratory Rate 16 05/03/22 23:10 Blood Pressure 121/69 05/03/22 23:10 Pulse Oximetry 100 05/03/22 23:10 Oxygen Delivery Me thod 05/03/22 21:31 MDM - Chest Pain Medical Decision Making Patient is a 22-year-old female comes to the ED with chest pain and back pain. Patient has a history of GERD but is not currently taking any acid reflux medications. Patient also delivered baby back on April 08 and had preeclampsia. Patient says her symptoms started at rest around 9:00 this morning. The pain started after she ate breakfast. Vitals are stable. Patient appears in no acute distress or pain. Rest of exam is benign. Hemoglobin 8.5 and the rest of CBC and CMP were unremarkable. Her hemoglobin back on April 08, 2022 was 7.8 so it has increased some. Troponins negative. Chest x-ray showed no acute findings. EKG showed no ST segment elevation or depression seen. Patient was given GI cocktail and her symptoms completely resolved and she felt a lot better. Patient was unaware of her hemoglobin levels and did note that she feels very easily fatigued patient does not have a PCP currently so I put in a referral for patient to be set up with a PCP for further evaluation management of anemia. Patient was diagnosed with noncardiac chest pain and anemia and was discharged home with a prescription for ferrous sulfate tablets. Strict return ED precautions given. Patient understood and agreed with plan. Lab Data I reviewed the patient's lab results. : 05/03/22 21:29 05/03/22 21: Radiology Impressions Chest X-Ray 05/03/22: IMPRESSION: No acute findings. Laboratory Results WBC 9.9 10^3/uL (4.0-10.0) 05/03/22: RBC 3.25 10^6/uL (4.1-5.3) L 05/03/22: Hgb 8.5 g/dL (11.5-15.3) L 05/03/22: Hct 28.0 % (37.0-47.0) L 05/03/22: MCV 86.2 fl (81-99) 05/03/22: MCH 26.2 pg (28.0-34.0) L 05/03/22: MCHC 30.4 g/dL (30.0-36.0) 05/03/22: RDW 13.2 % (12.1-15.1) 05/03/22: Plt Count 425 10^3/cmm (130-400) H 05/03/22: MPV 9.7 fL (7.4-10.4) 05/03/22: Neut % (Auto) 75.5 % 05/03/22: Lymph % (Auto) 15.6 % 05/03/22: [place] % (Auto) 7.4 % 05/03/22: Eos % (Auto) 0.9 % 05/03/22: Baso % (Auto) 0.2 % 05/03/22 Neut # (Auto) 7.43 10^3/uL (1.8-7.7) 05/03/22: Lymph # (Auto) 1.5 10^3/uL (0.8-4.8) 05/03/22 [place] # (Auto) 0.7 10^3/uL (0.2-0.9) 05/03/22: Eos # (Auto) 0.1 10^3/uL (0.0-0.8) 05/03/22: Baso # (Auto) 0.0 10^3/uL (0.0-0.1) 05/03/22: Nucleated RBC % (auto) 0 % 05/03/22 Nucleated RBCs # 0.0 /100WBC 05/03/22: Sodium 137 mmol/L (136-145) 05/03/22: Potassium 4.3 mmol/L (3.5-5.1) 05/03/22: Chloride 101 mmol/L (98-107) 05/03/22 Carbon Dioxide 25 mmol/L (22-29) 05/03/22: Anion Gap 15.3 (5-19) 05/03/22: BUN 9 mg/dL (6-20) 05/03/22: Creatinine 0.6 mg/dL (0.5-0.9) 05/03/22 GFR Calculation 126.2 mL/min (90-130) 05/03/22: Glucose 89 mg/dL (65-115) 05/03/22 Calculated Osmolality 282 mOsm/kg (285-295) L 05/03/22 Calcium 9.4 mg/dL (8.5-10.5) 05/03/22 21:29 Total Bilirubin 0.3 mg/dL (0.15-1.2) 05/03/22 21:29 AST 24 U/L (0-32) 05/03/22 21:29 ALT 15 U/L (0-33) 05/03/22 21:29 Alkaline Phosphatase 105 U/L (35-105) 05/03/22 21:29 Troponin T Baseline 8 ng/L (0-10) 05/03/22 21:29 Total Protein 6.6 g/dL (6.6-8.7) 05/03/22 21:29 Albumin 4.1 g/dL (3.5-5.2) 05/03/22 21: Globulin 2.5 g/dL (1.3-4.6) 05/03/22 21:29 HCG, Qual Negative (Negative) 05/03/22 21:29 EKG Data EKG 1: EKG interpretation date: 05/03/22 Interpretation: Normal sinus rhythm, 87 bpm, no ST segment elevation or depression seen. Discharge Plan Discharge Patient Disposition: Home Clinical Impression: Non-cardiac chest pain Anemia Qualifiers: Anemia type: unspecified type Qualified Code(s): D64.9 - Anemia, unspecified Condition: Stable Prescriptions: New ferrous sulfate 325 mg (65 mg iron) tablet,delayed release (DR/EC) 325 mg PO DAILY Qty: 20 0RF No Action nifedipine 30 mg tablet extended release 30 mg PO DAILY Qty: 30 0RF Discharge Orders: Discharge ED (Routine); Ordered 05/03/22 Ordered By: Christiano Sifuentes Discharge Diet: Regular Discharge Activity: Increase activity as tolerated Patient Instructions: Anemia (ED), Noncardiac Chest Pain (ED) Activity Restrictions/Additional Instructions: Follow-up with medical provider as directed. Case management should contact you in the next several days set up appointment with a primary care physician for further evaluation of anemia. Take medications as prescribed. Return to the ER or your medical provider if condition worsens. Please read and understand discharge instructions. Thank you for choosing [facility] for your healthcare needs today. Please realize this is an emergency room and that we are providing you with a medical screening exam and this may not be complete and all inclusive of all the testing and or work up that you may need to determine your ailment or severity of your illness. It is very important that you follow up as instructed or that you return to the Emergency Department should you have concerns or if your condition changes or worsens in any way. Coding Level of Care Code ED Wound Nurse for Maribel Schmitt Exam Comprehensive
[2022-05-03 21:39] LABS: Basophils % 0.2 %; Eosinophils # 0.1 10^3/uL (0.0-0.8); Eosinophils % 0.9 %; Hemoglobin 8.5 g/dL (11.5-15.3); Lymphocytes # 1.5 10^3/uL (0.8-4.8); Lymphocytes % 15.6 %; Mean Corpuscular HGB Conc 30.4 g/dL (30.0-36.0); Mean Corpuscular Hemoglobin 26.2 pg (28.0-34.0); Mean Corpuscular Volume 86.2 fl (81-99); Mean Platelet Volume 9.7 fL (7.4-10.4); Monocytes # 0.7 10^3/uL (0.2-0.9); Monocytes % 7.4 %; Neutrophils # 7.43 10^3/uL (1.8-7.7); Neutrophils % 75.5 %; Nucleated Red Blood Cells % 0 %; Platelet Count 425 10^3/cmm (130-400); Red Blood Count 3.25 10^6/uL (4.1-5.3); Red Cell Distribution Width 13.2 % (12.1-15.1); White Blood Count 9.9 10^3/uL (4.0-10.0)
[2022-05-03 21:54] LABS: HCG, Serum Qual Negative (Negative)
[2022-05-03] MEDS: lidocaine 2% viscous 15 ML, aluminum-mag hydrox-simethicon 30 ML, sucralfate oral liq 1 GM PO (22:04)
[2022-05-03 22:05] LABS: Alanine Aminotransferase 15 U/L (0-33); Albumin Level 4.1 g/dL (3.5-5.2); Alkaline Phosphatase 105 U/L (35-105); Anion Gap 15.3 (5-19); Aspartate Amino Transferase 24 U/L (0-32); Blood Urea Nitrogen 9 mg/dL (6-20); Calcium 9.4 mg/dL (8.5-10.5); Carbon Dioxide 25 mmol/L (22-29); Chloride 101 mmol/L (98-107); Globulin 2.5 g/dL (1.3-4.6); Glomerular Filtration Rate 126.2 mL/min (90-130); Glucose 89 mg/dL (65-115); Osmolality Calculated 282 mOsm/kg (285-295); Potassium 4.3 mmol/L (3.5-5.1); Sodium 137 mmol/L (136-145); Total Bilirubin 0.3 mg/dL (0.15-1.2); Total Protein 6.6 g/dL (6.6-8.7)
[2022-05-03 22:09] LABS: Troponin(5th) Baseline 8 ng/L (0-10)
[2022-05-03 22:45] VITALS: BP 118/68; PULSE 92; RESP 17; O2SAT 100
[2022-05-03 23:10] VITALS: BP 121/69; PULSE 94; RESP 16; O2SAT 100
--- NOTE | 2022-05-05 10:52 | DCPLANNER ---
post office manager had message to speak with patient about getting established with a primary care physician. post office manager unable to speak with patient at this time.
== END 2022-05-03 23:12 | disposition home or self-care (01) ==
PROVIDERS: Emergency Provider Physician Assistant
DX: R07.89 Other chest pain (principal); D64.9 Anemia, unspecified
CPT/HCPCS: 71045; 80053; 84484; 84703; 85025; 93005; 99285

== ENCOUNTER 2022-12-26 23:14 | Emergency (ER) | payer MEDICAID, SELFPAY ==
[2022-12-26 23:29] VITALS: BP 123/72; PULSE 127; RESP 17; TEMP 37.5; O2SAT 97
[2022-12-26 23:31] VITALS: BMI 37.0
--- NOTE | 2022-12-27 01:12 | XRR_ITS ---
PROCEDURE INFORMATION: Exam: XR Chest Exam date and time: 12/27/2022 1:54 AM Age: 22 years old Clinical indication: Cough TECHNIQUE: Imaging protocol: Radiologic exam of the chest. Views: 1 view. COMPARISON: CR XR chest 1V portable [id number] 05/03/2022 9:28 PM FINDINGS: Lungs: Unremarkable. No consolidation. Pleural spaces: Unremarkable. No pleural effusion. No pneumothorax. Heart/Mediastinum: Unremarkable. No cardiomegaly. Bones/joints: Unremarkable. XR/XR chest 1V portable [id number] IMPRESSION: No acute findings.
[2022-12-27 01:35] VITALS: BP 109/68; O2SAT 97
--- NOTE | 2022-12-27 01:37 | ED_ITS ---
Documented by User: VICENTE Cueva 12/27/22 03:37 HPI - General Adult General: Chief complaint: General Medical Stated complaint: flu like symptoms, 24 weeks Time Seen by Provider: 12/27/22 01:11 History of Present Illness: Patient is a 22-year-old female is currently 24 weeks comes to the ED with upper respiratory symptoms. Symptoms started this morning when she woke up. She has been having nasal drainage and congestion, dry cough, chills and body aches. She had 1 episode of emesis today. Patient admits to not drinking a lot of fluids today either. Denies any related complaints. Denies any fevers, vaginal bleeding, vaginal discharge, dysuria or hematuria. Associated symptoms: Reports nausea and vomiting (1 episode of emesis); Deny chest pain, dyspnea, headache(s), rash or palpitations Review of Systems Const: Reports: chills and body aches; Denies: fever(s) or fatigue Eyes: Denies: change in vision or eye discomfort ENMT: Reports: nasal discharge and nasal congestion; Denies: throat pain or odynophagia Card: Denies: chest pain, palpitations, edema, swelling of feet/ankles, dyspnea on exertion or orthopnea Resp: Reports: non-productive cough; Denies: dyspnea or productive cough GI: Reports: nausea and vomiting (1 episode of emesis); Denies: abdominal pain, diarrhea, constipation or hematochezia : Denies: flank pain, dysuria or hematuria Musc: Denies: neck pain, back pain or extremity swelling Skin/Breast: Denies: rash or new lesions Neuro: Denies: headache(s), numbness in extremities or weakness in extremities PFSH ED PFSH: Medical History Anxiety Arthritis Depression GERD (gastroesophageal reflux disease) Surgical History History of tonsillectomy and adenoidectomy [place] teeth removed Family History Father Diabetes type 2 Grandmother Breast cancer Maternal Family/Other Diabetes Maternal Aunt Mother Bleeding disorder Anemia Denies family history of CAD (coronary artery disease) Clotting disorder Hyperlipidemia Chronic kidney disease (CKD) Cancer Hypertension Thyroid disease Stroke Physical Exam Const: COMMON NORMALS: patient oriented x3 and alert GENERAL APPEARANCE: cooperative HENMT: COMMON NORMALS: normocephalic HEAD & SCALP: normocephalic MOUTH: Normal oral and palatal mucosa present THROAT: posterior oropharynx normal and uvula midline Neck/C-Spine: COMMON NORMALS: supple GENERAL: Yes normal visual inspection Resp: COMMON NORMALS: normal respiratory effort, No retractions, No use of accessory muscles and clear to auscultation bilaterally EFFORT & INSPECTION: Yes Actively coughing dry AUSCULTATION: clear to auscultation bilaterally Cardio: COMMON NORMALS: regular rate, regular rhythm, S1 normal heart sound present, S2 normal heart sound present, No gallops present (Cardio), No clicks present (Cardio), No murmurs present (Cardio) and Peripheral pulses 2+ throughout RATE: regular rate RHYTHM: regular rhythm HEART SOUNDS: S1 normal heart sound present and S2 normal heart sound present PERIPHERAL PULSES: Peripheral pulses 2+ throughout GI: COMMON NORMALS: Normal to inspection, nondistended, normoactive bowel sounds present, Soft to palpation, non-tender and no masses PALPATION: Yes Soft to palpation : COMMON NORMALS: Yes no CVA tenderness BLADDER/KIDNEY EXAM: Yes no CVA tenderness Back/Pelvis: COMMON NORMALS: no CVA tenderness Extremity: COMMON NORMALS: normal to inspection Neuro: COMMON NORMALS: patient oriented x3 SENSORIUM/ORIENTATION: Yes alert GAIT: Yes Normal gait present Skin: GENERAL SKIN EXAM: dry skin Course ED course: Bedside ultrasound was performed on patient and baby was visualized and was moving. Heart rate at around 160 bpm. Vital Signs: Vital signs: Vital Signs Temperature 99.5 F 12/26/22 23:29 Pulse Rate 101 H 12/27/22 03:45 Respiratory Rate 16 12/27/22 03:45 Blood Pressure 109/68 12/27/22 01:35 Pulse Oximetry 96 12/27/22 03:45 Oxygen Delivery Me thod Room Air 12/27/22 01:35 MDM - General Adult Medical Decision Making Patient is a 22-year-old female is currently 24 weeks comes to the ED w ith upper respiratory symptoms. Symptoms started this morning when she woke up. She has been having nasal drainage and congestion, dry cough, chills and body aches. She had 1 episode of emesis today. Patient admits to not drinking a lot of fluids today either. Denies any related complaints. Denies any fevers, vaginal bleeding, vaginal discharge, dysuria or hematuria. Patient's pulse is 127 and the rest of her vitals are stable and she is afebrile. Patient appears nontoxic in no acute distress. Lungs are clear to auscultation bilaterally but patient is coughing all throughout exam. Hemoglobin of 9.6 the rest of CBC and CMP are unremarkable. Influenza negative. COVID-positive. Chest x-ray showed no pneumonia. Bedside ultrasound was performed on patient and baby was visualized and was moving. Heart rate at around 160 bpm. UA showed possible UTI. Patient was given 2 L of IV fluids and her heart rate went down to 100 bpm. She was stable for discharge home and diagnosed with COVID, UTI and anemia. She was sent home with a prescription for Keflex. Told to follow-up with her PCP/WINDING INSPECTOR doctor in the next week for reevaluation return to ED precautions given. Patient understood and agreed with plan. Lab Data I reviewed the patient's lab results. 12/27/22 01:46 12/27/22 01:46 Radiology Impressions Chest X-Ray 12/27/22 01:12 IMPRESSION: No acute findings. Laboratory Results WBC 7.2 10^3/uL (4.0-10.0) 12/27/22 01:46 RBC 3.92 10^6/uL (4.1-5.3) L 12/27/22 01:46 Hgb 9.6 g/dL (11.5-15.3) L 12/27/22 01:46 Hct 30.6 % (37.0-47.0) L 12/27/22 01:46 MCV 78.1 fl (81-99) L 12/27/22 01:46 MCH 24.5 pg (28.0-34.0) L 12/27/22 01:46 MCHC 31.4 g/dL (30.0-36.0) 12/27/22 01:46 RDW 16.2 % (12.1-15.1) H 12/27/22 01:46 Plt Count 259 10^3/cmm (130-400) 12/27/22 01:46 MPV 9.8 fL (7.4-10.4) 12/27/22 01:46 Neut % (Auto) 83.1 % 12/27/22 01:46 Lymph % (Auto) 5.7 % 12/27/22 01:46 Dickens % (Auto) 10.6 % 12/27/22 01:46 Eos % (Auto) 0.1 % 12/27/22 01:46 Baso % (Auto) 0.1 % 12/27/22 01:46 Neut # (Auto) 6.01 10^3/uL (1.8-7.7) 12/27/22 01:46 Lymph # (Auto) 0.4 10^3/uL (0.8-4.8) L 12/27/22 01:46 Dickens # (Auto) 0.8 10^3/uL (0.2-0.9) 12/27/22 01:46 Eos # (Auto) 0.0 10^3/uL (0.0-0.8) 12/27/22 01:46 Baso # (Auto) 0.0 10^3/uL (0.0-0.1) 12/27/22 01:46 Nucleated RBC % (auto) 0 % 12/27/22 01:46 Nucleated RBCs # 0.0 /100WBC 12/27/22 01:46 Sodium 132 mmol/L (136-145) L 12/27/22 01:46 Potassium 3.3 mmol/L (3.5-5.1) L 12/27/22 01:46 Chloride 102 mmol/L (98-107) 12/27/22 01:46 Carbon Dioxide 18 mmol/L (22-29) L 12/27/22 01:46 Anion Gap 15.3 (5-19) 12/27/22 01:46 BUN 3 mg/dL (6-20) L 12/27/22 01:46 Creatinine 0.4 mg/dL (0.5-0.9) L 12/27/22 01:46 GFR Calculation 201.5 mL/min (90-130) H 12/27/22 01:46 Glucose 84 mg/dL (65-115) 12/27/22 01:46 Calculated Osmolality 270 mOsm/kg (285-295) L 12/27/22 01:46 Calcium 8.4 mg/dL (8.5-10.5) L 12/27/22 01:46 Total Bilirubin 0.2 mg/dL (0.15-1.2) 12/27/22 01:46 AST 16 U/L (0-32) 12/27/22 01:46 ALT 14 U/L (0-33) 12/27/22 01:46 Alkaline Phosphatase 63 U/L (35-105) 12/27/22 01:46 Total Protein 6.4 g/dL (6.6-8.7) L 12/27/22 01:46 Albumin 3.5 g/dL (3.5-5.2) 12/27/22 01:46 Globulin 2.9 g/dL (1.3-4.6) 12/27/22 01:46 Urine Color Yellow (Yellow) 12/27/22 02:23 Urine Appearance Clear (CLEAR) 12/27/22 02:23 Urine pH 6.5 (5-7) 12/27/22 02:23 Ur Specific [place] 1.020 (1.005-1.030) 12/27/22 02:23 Urine Protein Neg (Negative) 12/27/22 02:23 Urine Glucose (UA) Norm (Normal) 12/27/22 02:23 Urine Ketones 1+ (Negative) H 12/27/22 02:23 Urine Blood Neg (Negative) 12/27/22 02:23 Urine Nitrate Negative (Negative) 12/27/22 02:23 Urine Bilirubin Neg (Negative) 12/27/22 02:23 Urine Urobilinogen Norm mg/dL (Negative) 12/27/22 02:23 Ur Leukocyte Esterase 1+ (Negative) H 12/27/22 02:23 Urine RBC 0-4 /hpf (0-2) H 12/27/22 02:23 Urine WBC 15-25 /hpf (0-5) H 12/27/22 02:23 Ur Squamous Epith Cells 5-10 /hpf (0-5) H 12/27/22 02:23 Amorphous Sediment Not Reportable 12/27/22 02:23 Urine Bacteria 2+ /hpf (NONE) H 12/27/22 02:23 Urine Mucus 2+ /hpf 12/27/22 02:23 Influenza Type A Ag negative (Negative) 12/27/22 01:19 Influenza Type B Ag negative (Negative) 12/27/22 01:19 SARS-CoV-2 Ag (Rapid) positive (Negative) 12/27/22 01:19 EKG Data EKG 1: EKG interpretation date: 12/27/22 Interpretation: Sinus tachycardia, no ST segment elevation or depression seen. 111 bpm Computer generated interpretation: Chest X-Ray 12/27/22 01:12 IMPRESSION: No acute findings. Discharge Plan Discharge Patient Disposition: Home Clinical Impression: COVID UTI in Qualifiers: Trimester: second trimester Qualified Code(s): O23.42 - Unspecified infection of urinary tract in , second trimester Anemia Qualifiers: Anemia type: unspecified type Qualified Code(s): D64.9 - Anemia, unspecified Condition: Stable Prescriptions: New cephalexin 500 mg capsule 500 mg PO Q6H 7 Days Qty: 28 0RF No Action nifedipine 30 mg tablet extended release 30 mg PO DAILY Qty: 30 0RF ferrous sulfate 325 mg (65 mg iron) tablet,delayed release (DR/EC) 325 mg PO DAILY Qty: 20 0RF Discharge Orders: Discharge ED (Routine); Ordered 12/27/22 Ordered By: Christiano Sifuentes Referrals: Rachana Mederos MD [Primary Care Provider] - Discharge Diet: Regular Discharge Activity: Increase activity as tolerated Patient Instructions: Urinary Tract Infection in (ED), COVID-19 (C oronavirus Disease 2019) (ED) Activity Restrictions/Additional Instructions: Follow-up with medical provider as directed. Take medications as prescribed. Return to the ER or your medical provider if condition worsens. Please read and understand discharge instructions. Thank you for choosing [facility] for your healthcare needs today. Please realize this is an emergency room and that we are providing you with a medical screening exam and this may not be complete and all inclusive of all the testing and or work up that you may need to determine your ailment or severity of your illness. It is very important that you follow up as instructed or that you return to the Emergency Department should you have concerns or if your condition changes or worsens in any way. Coding Level of Care Code ED Instrument Processing Tech for Chg Fwd Documented by User: Jack Christiano Simba, 12/27/22 05:49 HPI - General Adult General: Chief complaint: General Medical Stated complaint: flu like symptoms, 24 weeks Time Seen by Provider: 12/27/22 01:11 COUNT INCLUDES THE [facility] ED PFSH: Medical History Anxiety Arthritis Depression GERD (gastroesophageal reflux disease) Surgical History History of tonsillectomy and adenoidectomy [place] teeth removed Family History Father Diabetes type 2 Grandmother Breast cancer Maternal Family/Other Diabetes Maternal Aunt Mother Bleeding disorder Anemia Denies family history of CAD (coronary artery disease) Clotting disorder Hyperlipidemia Chronic kidney disease (CKD) Cancer Hypertension Thyroid disease Stroke Course Vital Signs: Vital signs: Vital Signs Temperature 99.5 F 12/26/22 23:29 Pulse Rate 101 H 12/27/22 03:45 Respiratory Rate 16 12/27/22 03:45 Blood Pressure 109/68 12/27/22 01:35 Pulse Oximetry 96 12/27/22 03:45 Oxygen Delivery Me thod Room Air 12/27/22 01:35 MDM - General Adult Medical Decision Making Patient is a 22-year-old female is currently 24 weeks comes to the ED with upper respiratory symptoms. Symptoms started this morning when she woke up. She has been having nasal drainage and congestion, dry cough, chills and body aches. She had 1 episode of emesis today. Patient admits to not drinking a lot of fluids today either. Denies any related complaints. Denies any fevers, vaginal bleeding, vaginal discharge, dysuria or hematuria. Patient's pulse is 127 and the rest of her vitals are stable and she is afebrile. Patient appears nontoxic in no acute distress. Lungs are clear to auscultation bilaterally but patient is coughing all throughout exam. Hemoglobin of 9.6 the rest of CBC and CMP are unremarkable. Influenza negative. COVID-positive. Chest x-ray showed no pneumonia. Bedside ultrasound was performed on patient and baby was visualized and was moving. Heart rate at around 160 bpm. UA showed possible UTI. Patient was given 2 L of IV fluids and her heart rate went down to 100 bpm. She was stable for discharge home and diagnosed with COVID, UTI and anemia. She was sent home with a prescription for Keflex. Told to follow-up with her PCP/WINDING INSPECTOR doctor in the next week for reevaluation return to ED precautions given. Patient understood and agreed with plan. This patient was originally seen by Mr. Bear PA-C.? I agree with his history, evaluation, and treatment. Lab Data 12/27/22 01:46 12/27/22 01:46 Radiology Impressions Chest X-Ray 12/27/22 01:12 IMPRESSION: No acute findings. Laboratory Results WBC 7.2 10^3/uL (4.0-10.0) 12/27/22 01:46 RBC 3.92 10^6/uL (4.1-5.3) L 12/27/22 01:46 Hgb 9.6 g/dL (11.5-15.3) L 12/27/22 01:46 Hct 30.6 % (37.0-47.0) L 12/27/22 01:46 MCV 78.1 fl (81-99) L 12/27/22 01:46 MCH 24.5 pg (28.0-34.0) L 12/27/22 01:46 MCHC 31.4 g/dL (30.0-36.0) 12/27/22 01:46 RDW 16.2 % (12.1-15.1) H 12/27/22 01:46 Plt Count 259 10^3/cmm (130-400) 12/27/22 01:46 MPV 9.8 fL (7.4-10.4) 12/27/22 01:46 Neut % (Auto) 83.1 % 12/27/22 01:46 Lymph % (Auto) 5.7 % 12/27/22 01:46 Dickens % (Auto) 10.6 % 12/27/22 01:46 Eos % (Auto) 0.1 % 12/27/22 01:46 Baso % (Auto) 0.1 % 12/27/22 01:46 Neut # (Auto) 6.01 10^3/uL (1.8-7.7) 12/27/22 01:46 Lymph # (Auto) 0.4 10^3/uL (0.8-4.8) L 12/27/22 01:46 Dick[place] # (Auto) 0.8 10^3/uL (0.2-0.9) 12/27/22 01:46 Eos # (Auto) 0.0 10^3/uL (0.0-0.8) 12/27/22 01:46 Baso # (Auto) 0.0 10^3/uL (0.0-0.1) 12/27/22 01:46 Nucleated RBC % (auto) 0 % 12/27/22 01:46 Nucleated RBCs # 0.0 /100WBC 12/27/22 01:46 Sodium 132 mmol/L (136-145) L 12/27/22 01:46 Potassium 3.3 mmol/L (3.5-5.1) L 12/27/22 01:46 Chloride 102 mmol/L (98-107) 12/27/22 01:46 Carbon Dioxide 18 mmol/L (22-29) L 12/27/22 01:46 Anion Gap 15.3 (5-19) 12/27/22 01:46 BUN 3 mg/dL (6-20) L 12/27/22 01:46 Creatinine 0.4 mg/dL (0.5-0.9) L 12/27/22 01:46 GFR Calculation 201.5 mL/min (90-130) H 12/27/22 01:46 Glucose 84 mg/dL (65-115) 12/27/22 01:46 Calculated Osmolality 270 mOsm/kg (285-295) L 12/27/22 01:46 Calcium 8.4 mg/dL (8.5-10.5) L 12/27/22 01:46 Total Bilirubin 0.2 mg/dL (0.15-1.2) 12/27/22 01:46 AST 16 U/L (0-32) 12/27/22 01:46 ALT 14 U/L (0-33) 12/27/22 01:46 Alkaline Phosphatase 63 U/L (35-105) 12/27/22 01:46 Total Protein 6.4 g/dL (6.6-8.7) L 12/27/22 01:46 Albumin 3.5 g/dL (3.5-5.2) 12/27/22 01:46 Globulin 2.9 g/dL (1.3-4.6) 12/27/22 01:46 Urine Color Yellow (Yellow) 12/27/22 02: Urine Appearance Clear (CLEAR) 12/27/22 02:23 Urine pH 6.5 (5-7) 12/27/22 02:23 Ur Specific [place] 1.020 (1.005-1.030) 12/27/22 02:23 Urine Protein Neg (Negative) 12/27/22 02:23 Urine Glucose (UA) Norm (Normal) 12/27/22 02:23 Urine Ketones 1+ (Negative) H 12/27/22 02:23 Urine Blood Neg (Negative) 12/27/22 02: Urine Nitrate Negative (Negative) 12/27/22 02: Urine Bilirubin Neg (Negative) 12/27/22 02:23 Urine Urobilinogen Norm mg/dL (Negative) 12/27/22 02:23 Ur Leukocyte Esterase 1+ (Negative) H 12/27/22 02:23 Urine RBC 0-4 /hpf (0-2) H 12/27/22 02:23 Urine WBC 15-25 /hpf (0-5) H 12/27/22 02:23 Ur Squamous Epith Cells 5-10 /hpf (0-5) H 12/27/22 02:23 Amorphous Sediment Not Reportable 12/27/22 02:23 Urine Bacteria 2+ /hpf (NONE) H 12/27/22 02:23 Urine Mucus 2+ /hpf 12/27/22 02:23 Influenza Type A Ag negative (Negative) 12/27/22 01:19 Influenza Type B Ag negative (Negative) 12/27/22 01:19 SARS-CoV-2 Ag (Rapid) positive (Negative) 12/27/22 01:19 EKG Data EKG 1: Computer generated interpretation: Chest X-Ray 12/27/22 01:12 IMPRESSION: No acute findings. Discharge Plan Discharge Patient Disposition: Home Clinical Impression: COVID UTI in Qualifiers: Trimester: second trimester Qualified Code(s): O23.42 - Unspecified infection of urinary tract in , second trimester Anemia Qualifiers: Anemia type: unspecified type Qualified Code(s): D64.9 - Anemia, unspecified Condition: Stable Prescriptions: New cephalexin 500 mg capsule 500 mg PO Q6H 7 Days Qty: 28 0RF No Action nifedipine 30 mg tablet extended release 30 mg PO DAILY Qty: 30 0RF ferrous sulfate 325 mg (65 mg iron) tablet,delayed release (DR/EC) 325 mg PO DAILY Qty: 20 0RF Discharge Orders: Discharge ED (Routine); Ordered 12/27/22 Ordered By: Christiano Sifuentes Referrals: Rachana Mederos MD [Primary Care Provider] - Discharge Diet: Regular Discharge Activity: Increase activity as tolerated Patient Instructions: Urinary Tract Infection in (ED), COVID-19 (Coronavirus Disease 2019) (ED) Activity Restrictions/Additional Instructions: Follow-up with medical provider as directed. Take medications as prescribed. Return to the ER or your medical provider if condition worsens. Please read and understand discharge instructions. Thank you for choosing [facility] for your healthcare needs today. Please realize this is an emergency room and that we are providing you with a medical screening exam and this may not be complete and all inclusive of all the testing and or work up that you may need to determine your ailment or severity of your illness. It is very important that you follow up as instructed or that you return to the Emergency Department should you have concerns or if your condition changes or worsens in any way. Coding Level of Care Code ED Instrument Processing Tech for Maribel Schmitt
[2022-12-27] MEDS: ondansetron 2 mg/ML SDV 2 mL 4 MG IVP (01:50)
[2022-12-27] MEDS: sodium chloride 0.9% 1,000 ML 999 ML IV ×2 (01:51→02:39)
[2022-12-27 01:54] LABS: Basophils % 0.1 %; Eosinophils % 0.1 %; Hematocrit 30.6 % (37.0-47.0); Hemoglobin 9.6 g/dL (11.5-15.3); Lymphocytes # 0.4 10^3/uL (0.8-4.8); Lymphocytes % 5.7 %; Mean Corpuscular HGB Conc 31.4 g/dL (30.0-36.0); Mean Corpuscular Hemoglobin 24.5 pg (28.0-34.0); Mean Corpuscular Volume 78.1 fl (81-99); Mean Platelet Volume 9.8 fL (7.4-10.4); Monocytes # 0.8 10^3/uL (0.2-0.9); Monocytes % 10.6 %; Neutrophils # 6.01 10^3/uL (1.8-7.7); Neutrophils % 83.1 %; Nucleated Red Blood Cells % 0 %; Platelet Count 259 10^3/cmm (130-400); Red Blood Count 3.92 10^6/uL (4.1-5.3); Red Cell Distribution Width 16.2 % (12.1-15.1); White Blood Count 7.2 10^3/uL (4.0-10.0)
[2022-12-27 02:04] LABS: Influenza A by IFA negative (Negative); Influenza B by IFA negative (Negative); SARS Covid-2 Antigen positive (Negative)
[2022-12-27 02:11] LABS: Alanine Aminotransferase 14 U/L (0-33); Albumin Level 3.5 g/dL (3.5-5.2); Alkaline Phosphatase 63 U/L (35-105); Anion Gap 15.3 (5-19); Aspartate Amino Transferase 16 U/L (0-32); Blood Urea Nitrogen 3 mg/dL (6-20); Calcium 8.4 mg/dL (8.5-10.5); Carbon Dioxide 18 mmol/L (22-29); Chloride 102 mmol/L (98-107); Globulin 2.9 g/dL (1.3-4.6); Glomerular Filtration Rate 201.5 mL/min (90-130); Glucose 84 mg/dL (65-115); Osmolality Calculated 270 mOsm/kg (285-295); Potassium 3.3 mmol/L (3.5-5.1); Sodium 132 mmol/L (136-145); Total Bilirubin 0.2 mg/dL (0.15-1.2); Total Protein 6.4 g/dL (6.6-8.7)
--- NOTE | 2022-12-27 02:14 | ECG_ITS ---
[facility] Test Date: 2022-12-27 Pat Name: Fariha Patiño Department: Room: Gender: Female Resident Director: : [id number] Requested By: Christiano Sifuentes Order Number: [id number] Glenny MD: Jose E Cruz M.D. Measurements Intervals [place] Rate: 111 P: 21 CA: 150 QRS: 54 QRSD: 82 T: 1 QT: 316 QTc: 431 Interpretive Statements SINUS TACHYCARDIA NONSPECIFIC ST & T-WAVE ABNORMALITY Compared to ECG 05/03/2022 20:32:37 T-wave abnormality now present Sinus rhythm no longer present Electronically Signed On 12-27-2022 11:49:29 CDT by Jose E Cruz M.D. [email or web address]
[2022-12-27 02:46] LABS: Bilirubin Urine Neg (Negative); Blood Urine Neg (Negative); Glucose Urine UA Norm (Normal); Ketones Urine 1+ (Negative); Nitrate Urine Negative (Negative); Protein Urine Neg (Negative); Urine Appearance Clear (CLEAR); Urine Color Yellow (Yellow); pH Urine 6.5 (5-7)
[2022-12-27 02:47] LABS: Add Urine Microscopic? YES; Bacteria Urine 2+ /hpf; Leukocyte Esterase Urine 1+ (Negative); RBC Urine 0-4 /hpf (0-2); Urobilinogen Urine Norm (Negative)
[2022-12-27 02:48] LABS: Mucus Urine 2+ /hpf
[2022-12-27 02:50] LABS: Add Urine Culture? Yes; WBC Urine 15-25 /hpf (0-5)
[2022-12-27] MEDS: potassium chloride ER 20 mEq Tablet PO (03:07)
[2022-12-27 03:45] VITALS: PULSE 101; RESP 16; O2SAT 96
== END 2022-12-27 03:47 | disposition home or self-care (01) ==
PROVIDERS: Emergency Provider Physician Assistant; PCP Family Medicine
DX: O98.512 Other viral diseases complicating pregnancy, second trimester (principal); U07.1 COVID-19; O23.42 Unspecified infection of urinary tract in pregnancy, second trimester; N39.0 Urinary tract infection, site not specified; O99.012 Anemia complicating pregnancy, second trimester; D64.9 Anemia, unspecified; Z3A.24 24 weeks gestation of pregnancy
CPT/HCPCS: 71045; 80053; 81001; 85025; 87086; 87426; 87804; 93005; 96361; 96374; 99285; J2405; J7030

== ENCOUNTER 2023-03-02 16:27 | Outpatient (CLI) | payer MEDICAID, SELFPAY ==
[2023-03-02] VITALS (9 sets, daily range): BP systolic 111–127; BP diastolic 57–98; PULSE 71–102; TEMP 36.7–39.9; BMI 35.5
[2023-03-02] MEDS: terbutaline 1 mg/mL INJ 0.25 MG SUBCUT ×2 (17:37→18:36)
[2023-03-02] MEDS: lactated ringers 1,000 ML 999 ML IV (17:50)
== END 2023-03-02 19:36 | disposition home or self-care (01) ==
LOC: OPOB 16:28 → OBGYN 16:30
PROVIDERS: PCP Family Medicine; Visit Provider Family Medicine
DX: O47.9 False labor, unspecified (principal); Z3A.00 Weeks of gestation of pregnancy not specified
CPT/HCPCS: 59025; 96372; 99211; J3105; J7120

== ENCOUNTER 2023-03-03 20:19 | Outpatient (CLI) | payer MEDICAID, SELFPAY ==
[2023-03-03] VITALS (11 sets, daily range): BP systolic 118–121; BP diastolic 65–71; PULSE 102–126; RESP 16; TEMP 35.6–36.7; O2SAT 98–99; BMI 36.7
--- NOTE | 2023-03-03 20:55 | USR_ITS ---
PROCEDURE INFORMATION: Exam: US , Transvaginal Exam date and time: 03/03/2023 9:08 PM Age: 22 years old Clinical indication: Lmp or gestational age (in weeks): 33w 5d; Antepartum complications; Other: Pre-eclampsia, pre-term labor, no vaginal bleeding; ; Additional info: Cervical length LABS AND CLINICAL REPORTS: Gestational age (Established): 33 w 5 d Estimated due date (Established): 04/16/2023 TECHNIQUE: Imaging protocol: Real-time transvaginal obstetrical ultrasound of the maternal pelvis with image documentation. Transvaginal imaging was used for better evaluation of the fetus, adnexa, and/or cervix. COMPARISON: US OB >= 14 weeks fetus [id number] 12/10/2022 1:25 PM FINDINGS: Transvaginal ultrasound pelvis made for evaluation of the cervix length. The cervix is 5.6 cm in length and closed. The is not further evaluated. US/US OB transvaginal [id number] IMPRESSION: Cervix is 5.6 cm in length and closed.
[2023-03-03] MEDS: terbutaline 1 mg/mL INJ 0.25 MG SUBCUT (21:02)
== END 2023-03-03 22:08 | disposition home or self-care (01) ==
LOC: OPOB 20:19 → OBGYN 20:23
PROVIDERS: PCP Family Medicine; Visit Provider Family Medicine
DX: O47.9 False labor, unspecified (principal); Z3A.00 Weeks of gestation of pregnancy not specified
CPT/HCPCS: 59025; 76817; 96372; 99211; J3105

== ENCOUNTER 2023-03-07 23:37 | Emergency (ER) | payer MEDICAID, SELFPAY ==
[2023-03-07 23:44] VITALS: BP 109/70; PULSE 108; RESP 16; TEMP 36.7; O2SAT 98; BMI 35.6
[2023-03-08 01:45] VITALS: PULSE 80
[2023-03-08 02:02] VITALS: BP 108/59; PULSE 88; RESP 16; O2SAT 99
[2023-03-08] MEDS: clindamycin 150 mg Capsule 300 MG PO (02:29)
[2023-03-08] MEDS: diphenhydrAMINE 25 mg Capsule PO (02:30)
[2023-03-08] MEDS: dexamethasone 4 mg Tablet 10 MG PO (02:30)
[2023-03-08 02:35] VITALS: RESP 18; O2SAT 100
[2023-03-08] MEDS: oxyCODONE-APAP 5-325 mg Tablet 1 TAB PO (02:35)
[2023-03-08 02:38] VITALS: BP 108/67; PULSE 84; RESP 18; O2SAT 98
--- NOTE | 2023-03-08 03:55 | W.ED.EXTPRO ---
HPI - Extremity Problem General: Chief complaint: Extremity Problem,Nontraumatic Stated complaint: right foot pain Time Seen by Provider: 03/08/23 01:25 Source: patient History of Present Illness: 23-year-old female who is 34 weeks . She noticed what she believed to be an insect bite or sting on the sole of her right foot a couple of days ago. Since that time, it has become increasingly painful and itchy with a red streak that runs up to the dorsum of her foot near the medial longitudinal arch. No fever. No chills. No systemic symptoms. MD Complaint: other Onset (ago): day(s) Pain Consistency: constant Location: right and other Relieving factors: nothing Exacerbating factors: weight bearing Associated symptoms: Reports rash; Deny arthralgias, chest pain, fever(s) or short of breath Review of Systems Const: Denies: fever(s) ENMT: Denies: throat pain Card: Denies: chest pain Resp: Denies: dyspnea GI: Denies: abdominal pain or vomiting Skin/Breast: Reports: rash PFSH ED PFSH: Medical History Anxiety Arthritis Depression GERD (gastroesophageal reflux disease) Surgical History History of tonsillectomy and adenoidectomy [place] teeth removed Family History Father Diabetes type 2 Grandmother Breast cancer Maternal Family/Other Diabetes Maternal Aunt Mother Bleeding disorder Anemia Denies family history of CAD (coronary artery disease) Clotting disorder Hyperlipidemia Chronic kidney disease (CKD) Cancer Hypertension Thyroid disease Stroke Physical Exam Const: COMMON NORMALS: no acute distress GENERAL APPEARANCE: cooperative; not ill appearing and not frail appearing HENMT: COMMON NORMALS: normocephalic, atraumatic and Normal external nose present HEAD & SCALP: normocephalic and atraumatic FACE & SINUS: normal facial exam and face symmetric NOSE: Normal external nose present Eye: COMMON NORMALS: Equal, round and reactive pupils present and EOMs intact bilaterally PUPIL: Yes Equal, round and reactive pupils present Neck/C-Spine: GENERAL: Yes trachea midline Chest: CHEST: Yes Symmetrical chest wall rise Resp: COMMON NORMALS: normal respiratory effort, No retractions, No use of accessory muscles and clear to auscultation bilaterally AUSCULTATION: clear to auscultation bilaterally Cardio: COMMON NORMALS: regular rate and regular rhythm RATE: regular rate RHYTHM: regular rhythm GI: COMMON NORMALS: Normal to inspection, nondistended, normoactive bowel sounds present Extremity: COMMON NORMALS: no pedal edema Neuro: KRISH COMA SCALE: document GCS findings [place] coma scale eye opening: Spontaneous Krish coma scale verbal response: Orientated Krish coma scale motor response: Obey commands [place] coma scale total score: 15 SENSORY EXAM: Yes extremities (intact) Psych: COMMON NORMALS: speech normal SPEECH: Yes normal speech Skin: NARRATIVE SKIN EXAM: Clear sting or bite ameena to the plantar surface of the right medial midfoot, with surrounding redness, minimal swelling, and lymphangitic streak to the dorsum of her foot. Course Vital Signs: Vital signs: Vital Signs Temperature 98.0 F 03/07/23 23:44 Pulse Rate 84 03/08/23 02:38 Respiratory Rate 18 03/08/23 02:38 Blood Pressure 108/67 03/08/23 02:38 Pulse Oximetry 98 03/08/23 02:38 Oxygen Delivery Me thod Room Air 03/08/23 02:02 MDM - Extremity (Nontraumatic) Medical Decision Making Appears to be an insect bite or sting with surrounding swelling and lymphangitic streaking. We will treat with clindamycin. Benadryl. 1 dose of dexamethasone. Return for any worsening symptoms. Discharge Plan Discharge Patient Disposition: Home Clinical Impression: Bug bite, Acute lymphangitis of foot Condition: Stable Prescriptions: New clindamycin HCl 300 mg capsule 300 mg PO Q6H 7 Days Qty: 28 0RF No Action nifedipine 30 mg tablet extended release 30 mg PO DAILY Qty: 30 0RF ferrous sulfate 325 mg (65 mg iron) tablet,delayed release (DR/EC) 325 mg PO DAILY Qty: 20 0RF Discharge Orders: Discharge ED (Routine); Ordered 03/08/23 Ordered By: Jack Cottrell Referrals: Rachana Mederos MD [Primary Care Provider] - 1-3 days Patient Instructions: Insect Bite or Sting (ED), Lymphangitis (ED), Pain Management Activity Restrictions/Additional Instructions: Return for fever greater than 100 despite 3-4 doses of antibiotics, worsening red streaking despite 3-4 doses of antibiotics, worsening pain despite treatment, other concerning symptoms. You may use Benadryl for itching safely. Coding Level of Care Code ED Industrial Health Engineer for Maribel Schmitt
== END 2023-03-08 02:43 | disposition home or self-care (01) ==
PROVIDERS: Emergency Provider Emergency Medicine; PCP Family Medicine
DX: L03.125 Acute lymphangitis of right lower limb (principal); S90.861A Insect bite (nonvenomous), right foot, initial encounter; W57.XXXA Bitten or stung by nonvenomous insect and other nonvenomous arthropods, initial encounter
CPT/HCPCS: 99283; J8540

== ENCOUNTER 2023-03-19 00:53 | Outpatient (CLI) | payer MEDICAID, SELFPAY ==
[2023-03-19] VITALS (9 sets, daily range): BP systolic 101–110; BP diastolic 55–65; PULSE 56–114; RESP 16; BMI 35.9
[2023-03-19 02:00] LABS: Bacteria Urine 2+ /hpf; Bilirubin Urine 1+ (Negative); Blood Urine Neg (Negative); Glucose Urine UA Norm (Normal); Ketones Urine 1+ (Negative); Leukocyte Esterase Urine 2+ (Negative); Nitrate Urine Negative (Negative); Protein Urine Neg (Negative); RBC Urine 0-4 /hpf (0-2); Urine Appearance Hazy (CLEAR); Urine Color Yellow (Yellow); Urobilinogen Urine 1 mg/dL (Negative); pH Urine 5 (5-7)
[2023-03-19 02:01] LABS: Add Urine Culture? Yes; Calcium Oxalate Crystals Urine 0-4 /hpf; Mucus Urine 2+ /hpf
[2023-03-19 02:09] LABS: Amphetamines Screen Urine Negative (Negative); Barbiturates Screen Urine Negative (Negative); Benzodiazepines Screen Urine Negative (Negative); Cocaine Screen Urine Negative (Negative); Opiate Screen Urine Negative (Negative); PCP Screen Urine Negative (Negative); THC Screen Urine Negative (Negative)
[2023-03-19] MEDS: lactated ringers 1,000 ML 999 ML IV (02:32)
== END 2023-03-19 03:30 | disposition home or self-care (01) ==
LOC: OPOB 01:00 → OBGYN 01:00
PROVIDERS: PCP Family Medicine; Visit Provider Family Medicine
DX: O26.899 Other specified pregnancy related conditions, unspecified trimester (principal); R10.9 Unspecified abdominal pain; Z3A.00 Weeks of gestation of pregnancy not specified
CPT/HCPCS: 59025; 80306; 81001; 87086; 99211; J7120

== ENCOUNTER 2023-03-26 18:47 | Outpatient (CLI) | payer MEDICAID, SELFPAY ==
[2023-03-26 19:22] VITALS: BP 114/65; PULSE 109
[2023-03-26 19:37] VITALS: BP 111/60; PULSE 95
[2023-03-26 19:52] VITALS: BP 109/60; PULSE 113
[2023-03-26 20:03] VITALS: BP 117/55; PULSE 112
[2023-03-26 20:11] VITALS: BMI 36.8
== END 2023-03-26 20:10 | disposition home or self-care (01) ==
LOC: OPOB 18:51 → OBGYN 18:53
PROVIDERS: PCP Family Medicine; Visit Provider Family Medicine
DX: O26.899 Other specified pregnancy related conditions, unspecified trimester (principal); N89.8 Other specified noninflammatory disorders of vagina; Z3A.00 Weeks of gestation of pregnancy not specified
CPT/HCPCS: 59025; 83986; 99211

== ENCOUNTER 2023-04-02 22:02 | Outpatient (CLI) | payer MEDICAID, SELFPAY ==
[2023-04-02 22:02] VITALS: BMI 32.8
[2023-04-02 22:16] VITALS: BP 116/76; PULSE 101
[2023-04-02 22:31] VITALS: BP 112/74; PULSE 108
[2023-04-02 22:47] VITALS: BP 110/67; PULSE 100
[2023-04-02 22:54] LABS: Actim Prom Negative
[2023-04-02 22:55] LABS: Nitrazine Paper, PH Negative
[2023-04-02 23:01] VITALS: BP 115/69; PULSE 99
[2023-04-02 23:16] VITALS: BP 113/70; PULSE 90
== END 2023-04-03 00:05 | disposition home or self-care (01) ==
LOC: OPOB 22:02 → OBGYN 23:58
PROVIDERS: PCP Family Medicine; Visit Provider Family Medicine
DX: O47.9 False labor, unspecified (principal); Z3A.00 Weeks of gestation of pregnancy not specified
CPT/HCPCS: 59025; 83986; 84112; 99211

== ENCOUNTER 2023-04-05 14:18 | Outpatient (CLI) | payer MEDICAID, SELFPAY ==
[2023-04-05 14:20] VITALS: BMI 37.0
[2023-04-05 14:34] VITALS: BP 131/60; PULSE 83
[2023-04-05 14:57] VITALS: BP 117/67; PULSE 87
[2023-04-05 15:18] VITALS: BP 120/63; PULSE 75
[2023-04-05 15:20] LABS: Urine Creatinine 137 mg/dL (28-217); Urine Protein Random 14 mg/dL
[2023-04-05 15:23] LABS: Bilirubin Urine Neg (Negative); Blood Urine Neg (Negative); Glucose Urine UA Norm (Normal); Ketones Urine 1+ (Negative); Leukocyte Esterase Urine Negative (Negative); Nitrate Urine Negative (Negative); Protein Urine Trace (Negative); Urine Appearance Clear (CLEAR); Urine Color Yellow (Yellow); Urobilinogen Urine Norm (Negative); pH Urine 5 (5-7)
[2023-04-05 15:24] LABS: Add Urine Culture? No; Calcium Oxalate Crystals Urine 0-4 /hpf; Mucus Urine 2+ /hpf; RBC Urine 0-4 /hpf (0-2)
[2023-04-05 15:25] LABS: Bacteria Urine 1+ /hpf
[2023-04-05 15:37] VITALS: BP 112/63; PULSE 85
[2023-04-05 16:03] VITALS: BP 112/63; PULSE 85
--- NOTE | 2023-04-05 16:04 | PC.NURSE ---
PT WAS TOLD TO GO TO ER AND BE EVALUATED AND TOLD HER THAT IS VISION ISSUE OR NUMBNESS RETURNED TO GO TO ER KEVIN. ASK STAFF NAKUL TO WATCH AND SEE IF PATIENT WENT TO ER AND SHE DID NOT.
== END 2023-04-05 15:50 | disposition home or self-care (01) ==
LOC: OPOB 14:21 → OBGYN 14:22
PROVIDERS: PCP Family Medicine; Visit Provider Family Medicine
DX: O36.8190 Decreased fetal movements, unspecified trimester, not applicable or unspecified (principal); R20.0 Anesthesia of skin; H54.61 Unqualified visual loss, right eye, normal vision left eye; Z3A.00 Weeks of gestation of pregnancy not specified
CPT/HCPCS: 36415; 59025; 81001; 82570; 84156; 99211

== ENCOUNTER 2023-04-08 20:43 | Outpatient (CLI) | payer MEDICAID, SELFPAY ==
[2023-04-08 20:58] VITALS: BP 125/78; PULSE 104
[2023-04-08 21:02] VITALS: RESP 16
[2023-04-08 21:13] VITALS: BP 114/61; PULSE 100
[2023-04-08 21:24] VITALS: BMI 36.8
[2023-04-08 21:29] VITALS: BP 121/68; PULSE 105
== END 2023-04-08 21:35 | disposition home or self-care (01) ==
LOC: OPOB 20:44 → OBGYN 20:45
PROVIDERS: PCP Family Medicine; Visit Provider Family Medicine
DX: O26.899 Other specified pregnancy related conditions, unspecified trimester (principal); R10.9 Unspecified abdominal pain; Z3A.00 Weeks of gestation of pregnancy not specified
CPT/HCPCS: 59025; 99211

== ENCOUNTER 2023-04-09 01:25 | Inpatient (IN) | payer MEDICAID, SELFPAY ==
[2023-04-09] VITALS (54 sets, daily range): BP systolic 108–231; BP diastolic 62–150; PULSE 63–113; RESP 16; TEMP 36.6–36.7; O2SAT 77–100; BMI 36.8
[2023-04-09 01:54] LABS: Basophils % 0.2 %; Eosinophils # 0.1 10^3/uL (0.0-0.8); Eosinophils % 0.5 %; Hematocrit 33.2 % (37.0-47.0); Hemoglobin 10.2 g/dL (11.5-15.3); Lymphocytes # 1.8 10^3/uL (0.8-4.8); Lymphocytes % 18.7 %; Mean Corpuscular HGB Conc 30.7 g/dL (30.0-36.0); Mean Corpuscular Hemoglobin 23.2 pg (28.0-34.0); Mean Corpuscular Volume 75.6 fl (81-99); Mean Platelet Volume 10.5 fL (7.4-10.4); Monocytes # 0.7 10^3/uL (0.2-0.9); Monocytes % 7.1 %; Neutrophils # 7.09 10^3/uL (1.8-7.7); Neutrophils % 73.2 %; Nucleated Red Blood Cells % 0 %; Platelet Count 349 10^3/cmm (130-400); Red Blood Count 4.39 10^6/uL (4.1-5.3); Red Cell Distribution Width 15.9 % (12.1-15.1); White Blood Count 9.7 10^3/uL (4.0-10.0)
[2023-04-09] MEDS: lactated ringers 1,000 ML 999 ML IV (01:55)
--- NOTE | 2023-04-09 02:36 | ANES.PREANE2 ---
Pre-Anesthetic Assessment Height/Weight: Height 1.55 m Pulse BP Pulse Ox 98 137/83 100 04/09/23 02:22 04/09/23 02:22 04/09/23 02:17 Preop Diagnosis: labor epidural Familial anesthetic complications: none, pt states last epidural only worked on right side Was Beta Mayo taken within 24 hours: N/A Was Clonidine taken within 24 hours: N/A Last Intake: 18:00 Social No alcohol and No tobacco Exam alert, oriented x 3, clear to auscultation bilaterally and regular rate & rhythm Airway Submandibular: within normal limits Cervical ROM: within normal limits Mallampati: Class II Dentition: full (tongue ring) Pulmonary None reported CV/HEM None reported None reported Hepatic None reported GI Gastroesophageal Reflux Disease Metabolic None reported Musc/skel Lower Back Pain and Osteoarthritis/DJD Neuropsych Anxiety and Depression Anesthetic Plan ASA status: 2 Anesthesia: Regional (specify below) (epidural) Medications/Allergies Home Medications Medication Instructions Recorded Confirmed Last Taken Type ferrous sulfate 325 mg (65 mg 325 mg PO DAILY #20 tabs 05/03/22 Unknown Rx iron) tablet,delayed release Allergies Allergy/AdvReac Type Severity Reaction Status Date / Time kiwi Allergy Severe ALGY-Swell Verified 03/07/23 23:44 Lip/Tongue/Throat Current Medications Generic Name Dose Route Start Last Admin Trade Name Freq PRN Reason Stop Dose Admin Lactated Ringer's 1,000 mls @ 999 mls/hr 04/09/23 01:31 04/09/23 01:55 Lactated Ringers IV 999 mls/hr .Q1H1M PRN Administration See label comments PFSH Anesthesia Medical History Anxiety Arthritis Depression GERD (gastroesophageal reflux disease) Surgical History History of tonsillectomy and adenoidectomy [place] teeth removed Family History Father Diabetes type 2 Grandmother Breast cancer Maternal Family/Other Diabetes Maternal Aunt Mother Bleeding disorder Anemia Denies family history of CAD (coronary artery disease) Clotting disorder Hyperlipidemia Chronic kidney disease (CKD) Cancer Hypertension Thyroid disease Stroke Data Anesthesia 04/09/23 01:40 Short CBC 07/28/23 Range/Units 01:40 WBC 9.7 (4.0-10.0) 10^3/uL Hgb 10.2 L (11.5-15.3) g/dL Hct 33.2 L (37.0-47.0) % MCV 75.6 L (81-99) fl Plt Count 349 (130-400) 10^3/cmm Neut % (Auto) 73.2 % Neut # (Auto) 7.09 (1.8-7.7) 10^3/uL Cardiac Studies: No Data to Display
--- NOTE | 2023-04-09 03:07 | ANES.PROC ---
Anesthesia Procedures Procedure/Date: 04/09/23 Epidural: Time Out Performed: Yes Consents Signed: Procedure Consent and NPO Consent Consent: requested by attending/covering physician, from patient, risks and benefits reviewed, patient agrees to proceed and emergency procedure Lumbar Level: L3-L4 Epidural position: sitting Epidural procedure: sterile prep of area (betadine), 1% lidocaine to numb the area (3ml), 18 g needle, neg for paresthesia, test dose given, 1.5% xylocaine 1:200k epi (3ml/2ml), 0.2% Ropivacaine bolus ml (5ml), placed PCEA, no systemic response, sterile dressing applied, L.U.D. no apparent complications and 0.2% Ropiavacaine @ mls/hr (10ml/hr)
[2023-04-09] MEDS: miSOPROStol 200 mcg Tablet 800 MCG PR (03:15)
--- NOTE | 2023-04-09 03:19 | PM.OPHPUD ---
Labor & Delivery H&P Update Date of Procedure: April 09, 2023 Date H&P Performed: 04/07/22 Admission Diagnosis: Preop diagnosis: labor
--- NOTE | 2023-04-09 03:19 | PM.DELIVERY ---
Delivery Note: Date of delivery: April 09, 2023 Pre-Delivery Course: The patient had routine care at [facility]. Her KAYLA was 04/15/23. Blood type A+, antibody negative, hepatitis B nonreactive, hepatitis C nonreactive, HIV nonreactive, rubella immune, GC chlamydia negative, RPR nonreactive, urine drug screen negative, she passed her glucose tolerance test, she was GBS positive. Her was complicated by frequent triage visits and frequent contractions but no evidence of actual labor. Delivery: This is a 23-year-old G2, P1 at 39 weeks 0 days gestation who presented to labor and delivery in active labor with advanced dilation. She did have time to receive an epidural but it had not quite taken effect by the time she had spontaneous rupture of membranes with thick meconium. She had a normal spontaneous vaginal delivery of a viable female infant weight 2995 g, 6 pounds 10 ounces, Apgars 9 and 9 over an intact perineum. There was an extensive amount of terminal meconium. The was suctioned at delivery and placed on the mother's chest. The cord was clamped and cut. The placenta was delivered grossly intact and normal to inspection. There were no lacerations. Pitocin was not immediately available on the floor so the patient was given 800 mcg of Cytotec rectally. Mother and were doing well after delivery. Mother was GBS positive. She did receive 1 dose of ampicillin prior to delivery but it was less than 4 hours prior to. History History History 1 Term 1 0 Miscarriages/Ectopic 0 Living Children 1 Coding Level of Care Code Acute Code for Chg Fwd Diagnoses
[2023-04-09] MEDS: dextrose 5%-lactated ringers 1,000 ML 125 ML IV (03:30)
[2023-04-09] MEDS: ibuprofen 800 mg tablet PO ×3 (08:27→21:12)
[2023-04-09] MEDS: prenatal vitamin Capsule 1 CAP PO (08:27)
[2023-04-09] MEDS: docusate sodium 100 mg Capsule PO ×2 (08:27→21:12)
[2023-04-09] MEDS: ferrous sulfate EC 325 mg Tablet PO (08:27)
[2023-04-09 17:51] LABS: Hematocrit 32.3 % (37.0-47.0); Hemoglobin 9.7 g/dL (11.5-15.3); Mean Corpuscular Hemoglobin 23.2 pg (28.0-34.0); Mean Corpuscular Volume 77.1 fl (81-99); Mean Platelet Volume 10.7 fL (7.4-10.4); Platelet Count 320 10^3/cmm (130-400); Red Blood Count 4.19 10^6/uL (4.1-5.3); Red Cell Distribution Width 15.9 % (12.1-15.1); White Blood Count 12.8 10^3/uL (4.0-10.0)
[2023-04-10 04:02] VITALS: BP 106/67; PULSE 56; RESP 16; O2SAT 99
[2023-04-10] MEDS: prenatal vitamin Capsule 1 CAP PO (09:41)
[2023-04-10] MEDS: ferrous sulfate EC 325 mg Tablet PO (09:41)
[2023-04-10] MEDS: docusate sodium 100 mg Capsule PO ×2 (09:41→20:24)
[2023-04-10] MEDS: ibuprofen 800 mg tablet PO ×3 (09:41→20:24)
--- NOTE | 2023-04-10 15:27 | PM.PN ---
Subjective Subjective: day #1 doing well. She is ambulating, tolerating a regular diet, essentially does not have any pain, she does not have any swelling today and her bleeding has decreased Vitals/I&O/Wt Last Vital Signs Temp 98.1 F 04/09/23 22:56 Pulse 56 L 04/10/23 04:02 Resp 16 04/10/23 04:02 BP 106/67 04/10/23 04:02 Pulse Ox 99 04/10/23 04:02 O2 Del Method Room Air 04/10/23 04:02 Weight last 48 hrs Weight 88.451 kg Physical Exam Narrative: Alert and oriented, sitting up in bed holding her toddler. Heart regular rate and rhythm, lungs clear to auscultation bilaterally, abdomen is soft and nontender fundus is firm and U -2, extremities have no calf tenderness and no edema Data 04/09/23 17:28 A&P Assessment and plan (1) (normal spontaneous vaginal delivery): Routine care Attestations Medical Necessity Statement*: Routine care Coding Level of Care Code Acute Code for Chg Fwd Diagnoses (normal spontaneous vaginal delivery) O80
--- NOTE | 2023-04-10 16:41 | ANE.PACU2 ---
Inpatient post-anesthesia follow up: Airway intact: Yes Vital signs: Temperature 98.1 F Pulse Rate 56 Respiratory Rate 16 Blood Pressure 106/67 Pulse Oximetry 99 Oxygen Delivery Me thod Room Air Oxygen Flow Rate Fraction of Inspir ed Oxygen Hydration adequate: Yes Nausea and vomiting: No Pain level: 1 Mental status: Baseline
[2023-04-10 17:28] VITALS: BP 107/65; PULSE 74; RESP 16; TEMP 36.9
[2023-04-10 21:12] VITALS: BP 128/81; PULSE 75; RESP 16; TEMP 36.7; O2SAT 100
[2023-04-11 04:58] VITALS: BP 119/83; PULSE 80; RESP 16; TEMP 36.6; O2SAT 99
--- NOTE | 2023-04-11 09:50 | P.DS_ITS ---
Discharge Providers Date of Admission: 04/09/23 01:25 Date of Discharge: April 11, 2023 Attending Provider at Admission: Rachana Mederos MD Attending Provider at Discharge: Rachana Mederos MD Primary Care Provider: Rachana Mederos MD Diagnoses at Discharge Discharge Diagnosis (1) (normal spontaneous vaginal delivery): Status: Acute Reason for Visit Reason for Visit: contractions Hospital Course Hospital Course This is a 23-year-old G2 now P2 who had a normal spontaneous vaginal delivery of a viable female infant at 38 weeks 5 days gestation. Mother and infant did well after delivery. Mother was ambulating, tolerating a regular diet, had light vaginal bleeding and was comfortable with discharge home. Physical Exam Narrative: Alert and oriented, sitting up in bedside chair, heart regular rate and rhythm, lungs clear to auscultation bilaterally, abdomen is soft and nontender, fundus is firm and U -3, extremities have no edema no calf tenderness Discharge Data Studies Completed and Pending Laboratory Results WBC 12.8 10^3/uL (4.0-10.0) H 04/09/23 17: RBC 4.19 10^6/uL (4.1-5.3) 04/09/23 17: Hgb 9.7 g/dL (11.5-15.3) L 04/09/23 17: Hct 32.3 % (37.0-47.0) L 04/09/23 17: MCV 77.1 fl (81-99) L 04/09/23 17: MCH 23.2 pg (28.0-34.0) L 04/09/23 17: MCHC 30.0 g/dL (30.0-36.0) 04/09/23 17: RDW 15.9 % (12.1-15.1) H 04/09/23 17: Plt Count 320 10^3/cmm (130-400) 04/09/23 17: MPV 10.7 fL (7.4-10.4) H 04/09/23 17: Neut % (Auto) 73.2 % 04/09/23 01:40 Lymph % (Auto) 18.7 % 04/09/23 01:40 [place] % (Auto) 7.1 % 04/09/23 01:40 Eos % (Auto) 0.5 % 04/09/23 01:40 Baso % (Auto) 0.2 % 04/09/23 01:40 Neut # (Auto) 7.09 10^3/uL (1.8-7.7) 04/09/23 01:40 Lymph # (Auto) 1.8 10^3/uL (0.8-4.8) 04/09/23 01:40 [place] # (Auto) 0.7 10^3/uL (0.2-0.9) 04/09/23 01:40 Eos # (Auto) 0.1 10^3/uL (0.0-0.8) 04/09/23 01:40 Baso # (Auto) 0.0 10^3/uL (0.0-0.1) 04/09/23 01:40 Nucleated RBC % (auto) 0 % 04/09/23 01:40 Nucleated RBCs # 0.0 /100WBC 04/09/23 01:40 Vitals Last Vital Signs Temp 97.8 F 04/11/23 04:58 Pulse 80 04/11/23 04:58 Resp 16 04/11/23 04:58 BP 119/83 04/11/23 04:58 Pulse Ox 99 04/11/23 04:58 O2 Del Method Room Air 04/11/23 04:58 Discharge Plan Discharge Patient Disposition: Home Condition: Stable Prescriptions: Continued ferrous sulfate 325 mg (65 mg iron) tablet,delayed release (DR/EC) 325 mg PO DAILY Qty: 20 0RF Discharge Orders: Discharge Order (Routine); Ordered 04/11/23 Ordered By: Rachana Mederos Referrals: Rachana Mederos MD [Primary Care Provider] - 1 month Discharge Diet: Usual diet Discharge Activity: Limit activity as instructed Patient Instructions: Opioid Safety Discharge Attestations Time Spent in Discharge Care*: less than 30 min Quality Metrics Clinical Quality Measures [ No reported AMI, CVA or VTE this stay] Coding Level of Care Code Acute Code for Chg Fwd Diagnoses (normal spontaneous vaginal delivery) O80
[2023-04-11 12:00] VITALS: BP 107/64; PULSE 64; RESP 16; TEMP 36.9
== END 2023-04-11 12:08 | disposition home or self-care (01) | DRG 807 ==
LOC: OPOB 01:26 → OBGYN 01:26
PROVIDERS: Admitting Provider Family Medicine; PCP Family Medicine; Visit Provider Family Medicine
DX: O99.824 Streptococcus B carrier state complicating childbirth (principal); Z37.0 Single live birth; Z3A.39 39 weeks gestation of pregnancy; O77.0 Labor and delivery complicated by meconium in amniotic fluid
CPT/HCPCS: 36415; 59025; 59409; 85025; 85027; 99211; J2795; J7040; J7120; J7121

== ENCOUNTER 2024-04-09 23:06 | Outpatient (CLI) | payer MEDICAID, SELFPAY ==
[2024-04-09 22:55] VITALS: BMI 40.2
[2024-04-09 23:14] VITALS: BP 113/64; PULSE 88
[2024-04-09 23:29] VITALS: BP 111/65; PULSE 85
[2024-04-09 23:44] VITALS: BP 110/59; PULSE 82
[2024-04-10 00:17] VITALS: BP 110/59; PULSE 82; RESP 16; TEMP 36.6
== END 2024-04-10 00:17 | disposition home or self-care (01) ==
LOC: OPOB 23:06 → OBGYN 23:06
PROVIDERS: PCP Family Medicine; Visit Provider Family Medicine
DX: O26.899 Other specified pregnancy related conditions, unspecified trimester (principal); Z3A.00 Weeks of gestation of pregnancy not specified; R10.9 Unspecified abdominal pain
CPT/HCPCS: 59025; 99211

== ENCOUNTER 2024-05-20 00:01 | Inpatient (IN) | payer MEDICAID, SELFPAY ==
[2024-05-19 22:59] VITALS: BP 143/87; PULSE 85
[2024-05-19 23:17] VITALS: BMI 41.9
[2024-05-19 23:38] VITALS: BP 131/74; PULSE 74
[2024-05-19 23:41] LABS: Basophils % 0.4 %; Eosinophils % 0.4 %; Lymphocytes # 1.8 10^3/uL (0.8-4.8); Lymphocytes % 20.8 %; Mean Corpuscular HGB Conc 31.6 g/dL (30-55); Mean Corpuscular Hemoglobin 26.8 pg (27-33); Mean Corpuscular Volume 84.9 fl (85-98); Mean Platelet Volume 11.9 fL (7.4-10.4); Monocytes # 0.7 10^3/uL (0.2-0.9); Monocytes % 7.7 %; Neutrophils # 5.86 10^3/uL (1.8-7.7); Neutrophils % 69.7 %; Nucleated Red Blood Cells % 0 %; Platelet Count 268 10^3/cmm (157-399); Red Blood Count 4.36 10^6/uL (3.85-5.65); Red Cell Distribution Width 14.3 % (12.1-15.1)
[2024-05-19] MEDS: lactated ringers 1,000 ML 999 ML IV (23:44)
[2024-05-19 23:53] VITALS: BP 138/70; PULSE 82
[2024-05-20] VITALS (25 sets, daily range): BP systolic 112–197; BP diastolic 58–100; PULSE 58–125; RESP 16–18; TEMP 36.4–37.1; O2SAT 90–99
[2024-05-20 00:29] LABS: Actim Prom Negative
--- NOTE | 2024-05-20 00:37 | P.ANESASSM_ITS ---
Pre-Anesthetic Assessment Height/Weight: Height 1.55 m Weight 100.698 kg Pulse BP Pulse Ox 82 136/58 99 05/20/24 00:34 05/20/24 00:34 05/20/24 00:32 Preop Diagnosis: Labor pain CL$ Was Beta Mayo taken within 24 hours: N/A Was Clonidine taken within 24 hours: N/A Social Tobacco and No alcohol Vaps Exam alert, oriented x 3, clear to auscultation bilaterally and regular rate & rhythm Airway Submandibular: within normal limits Cervical ROM: within normal limits Mallampati: Class II Dentition: full History/ROS No significant history except as noted and No significant complaints Pulmonary None reported CV/HEM None reported None reported Hepatic None reported GI None reported Metabolic Morbid Obesity Musc/skel None reported Neuropsych None reported Anesthetic Plan ASA status: 2 Anesthesia: Anesthesia Evaluation and Regional (specify below) Other: [place] Risk of > 500 ml blood loss (7ml/kg in children): No Medications/Allergies Home Medications Medication Instructions Recorded Confirmed Last Taken Type vitamin 1 tab PO DAILY 04/09/24 04/09/24 1 Day Ago History no.76-iron,carbonyl 29 mg ~04/08/24 iron-folic acid 1 mg tablet Allergies Allergy/AdvReac Type Severity Reaction Status Date / Time kiwi Allergy Severe ALGY-Swell Verified 04/10/24 03:13 Lip/Tongue/Throat Current Medications Generic Name Dose Route Start Last Admin Trade Name Freq PRN Reason Stop Dose Admin Lactated Ringer's 1,000 mls @ 999 mls/hr 05/19/24 23:14 05/19/24 23:44 Lactated Ringers IV 999 mls/hr .Q1H1M PRN Administration See label comments PFSH Anesthesia Medical History Anxiety Arthritis Depression GERD (gastroesophageal reflux disease) Surgical History History of tonsillectomy and adenoidectomy [place] teeth removed Family History Father Diabetes type 2 Grandmother Breast cancer Maternal Family/Other Diabetes Maternal Aunt Mother Bleeding disorder Anemia Denies family history of CAD (coronary artery disease) Clotting disorder Hyperlipidemia Chronic kidney disease (CKD) Cancer Hypertension Thyroid disease Stroke Data Anesthesia 05/19/24 23:20 Short CBC 05/19/24 Range/Units 23:20 WBC 8.40 (3.29-11.43) 10^3/uL Hgb 11.70 (11.27-16.99) g/dL Hct 37.0 (36-47) % MCV 84.9 L (85-98) fl Plt Count 268 (157-399) 10^3/cmm Neut % (Auto) 69.7 % Neut # (Auto) 5.86 (1.8-7.7) 10^3/uL Cardiac Studies: 2 No Data to Display
--- NOTE | 2024-05-20 00:38 | ANES.PROC ---
Anesthesia Procedures Procedure/Date: 05/20/24 Epidural: Time Out Performed: Yes Consents Signed: Procedure Consent Consent: requested by attending/covering physician, from patient, risks and benefits reviewed and patient agrees to proceed Lumbar Level: L3-L4 Epidural position: sitting Epidural procedure: sterile prep of area, 1% lidocaine to numb the area, 18 g needle, neg for paresthesia, test dose given, 1.5% xylocaine 1:200k epi (5cc), 0.2% Ropivacaine bolus ml (4cc and Fentanyl 100mcg), placed PCEA, no systemic response, sterile dressing applied and L.U.D. no apparent complications Additional Comments: Pt tolerated well. As soon as epidural placed patient needs to push
[2024-05-20] MEDS: dextrose 5%-lactated ringers 1,000 ML 125 ML IV (00:40)
[2024-05-20] MEDS: oxytocin 30 UNIT/500 ML BAG 600 UNIT IV (00:45)
--- NOTE | 2024-05-20 01:05 | P.PCNOB_ITS ---
Delivery Note: Date of delivery: May 20, 2024 Delivering Physician: Rachana Mederos MD Estimated blood loss (mL): 200 Pre-Delivery Course: The patient had routine care at [facility]. There were no complications during the . labs: Blood type a positive, antibody negative, hepatitis B nonreactive, hepatitis C nonreactive, HIV nonreactive, rubella immune, GC chlamydia negative, RPR nonreactive, UDS negative, Q low risk, she failed her 1 hour but passed her 3-hour glucose tolerance test, she was GBS negative. Delivery: This is a 24-year-old G3, P2 at 38 weeks 3 days gestation who presented to labor and delivery 7 cm dilated. She was checked immediately before she was set up to receive an epidural and had not made any cervical change so epidural was performed. As soon as she was repositioned to lay back down her water broke and she was involuntarily pushing. I received a call at 1233 and presented to the hospital at 1244 with the already delivered and on mother's chest. The cord was clamped and cut. The infant was handed to the waiting pediatric nurse. The placenta was delivered grossly intact and normal to inspection. There were no lacerations. History History History 1 Term 1 0 Miscarriages/Ectopic 0 Living Children 1 Coding Level of Care Code Acute Code for Chg Fwd
--- NOTE | 2024-05-20 04:07 | PC.NURSE ---
pump not started, patient only received initial epidural bolus administered by anesthesia
[2024-05-20] MEDS: ibuprofen 800 mg tablet PO ×2 (08:42→21:21)
[2024-05-20] MEDS: PRENATAL VIT NO.130/IRON/FOLIC 1 EACH TABLET PO (08:42)
[2024-05-20] MEDS: docusate sodium 100 mg Capsule PO ×2 (08:42→21:22)
[2024-05-20 13:54] LABS: Hematocrit 34.9 % (36-47); Mean Corpuscular HGB Conc 32.4 g/dL (30-55); Mean Corpuscular Hemoglobin 27.1 pg (27-33); Mean Corpuscular Volume 83.7 fl (85-98); Mean Platelet Volume 11.4 fL (7.4-10.4); Platelet Count 267 10^3/cmm (157-399); Red Blood Count 4.17 10^6/uL (3.85-5.65); Red Cell Distribution Width 14.6 % (12.1-15.1); White Blood Count 10.11 10^3/uL (3.29-11.43)
[2024-05-21] VITALS (11 sets, daily range): BP systolic 119–137; BP diastolic 73–85; PULSE 54–81; RESP 15–18; TEMP 36.6–37.1; O2SAT 98–100
[2024-05-21] MEDS: lactated ringers 1,000 ML 999 ML IV ×2 (11:30→13:10)
--- NOTE | 2024-05-21 12:23 | P.HP_ITS ---
Providers/Chief Complaint 2 Admitting Physician: Rachana Mederos MD Primary Care Provider: Rachana Mederos MD Chief Complaint: possible ROM, ctx History of Present Illness Fariha Patiño is a 24 year old female G3 now P3 who had a normal spontaneous vaginal delivery of a viable male last evening. The patient previously expressed desire to undergo permanent surgical sterilization. We had discussed this much earlier in the and she has signed the Medicaid form. She has been unwavering in her decision and would like to proceed with bilateral tubal ligation. Review of Systems 2 Narrative: No fevers chills, nausea, vomiting. Medications/Allergies Home Medications Medication Instructions Recorded Confirmed Last Taken Type vitamin 1 tab PO DAILY 04/09/24 04/09/24 1 Day Ago History no.76-iron,carbonyl 29 mg ~04/08/24 iron-folic acid 1 mg tablet Allergies Allergy/AdvReac Type Severity Reaction Status Date / Time kiwi Allergy Severe ALGY-Swell Verified 04/10/24 03:13 Lip/Tongue/Throat PFSH Acute 2 PFSH: Medical History Anxiety Arthritis Depression GERD (gastroesophageal reflux disease) Surgical History History of tonsillectomy and adenoidectomy [place] teeth removed Family History Father Diabetes type 2 Grandmother Breast cancer Maternal Family/Other Diabetes Maternal Aunt Mother Bleeding disorder Anemia Denies family history of CAD (coronary artery disease) Clotting disorder Hyperlipidemia Chronic kidney disease (CKD) Cancer Hypertension Thyroid disease Stroke Female Reproductive History: : 3 Vitals/I&O/Wt Last Vital Signs Temp 98.3 F 05/21/24 10:03 Pulse 70 05/21/24 10:03 Resp 16 05/21/24 10:03 BP 119/77 05/21/24 10:03 Pulse Ox 98 05/21/24 10:03 O2 Del Method Room Air 05/21/24 10:03 Weight last 48 hrs Weight 100.698 kg Physical Exam 2 Narrative: Alert and oriented, resting in bed, abdomen is soft and nontender, fundus is firm, extremities have 1+ edema but no calf tenderness Data 05/20/24 13:45 A&P Assessment and plan (1) Encounter for consultation for female sterilization: Risk benefits and alternatives of bilateral tubal ligation have been discussed with the patient in detail. She wishes to proceed. We are scheduled for the surgery to follow the morning OR surgical cases. Attestations 2 Medical Necessity Statement*: Routine surgery and care Coding Level of Care Code Acute Code for Chg Fwd Diagnoses Encounter for consultation for female sterilization Z30.09
[2024-05-21] MEDS: famotidine 20 mg/2 mL INJ IVP (12:43)
[2024-05-21] MEDS: metoclopramide 5 mg/mL SDV 2 mL 10 MG IVP (12:43)
[2024-05-21] MEDS: citric acid-sodium citrate 30 mL UDC PO (12:43)
--- NOTE | 2024-05-21 12:49 | P.ANESUD_ITS ---
Pre-Anesthetic Update Pre-Anesthetic Assessment: Date of Surgery/Procedure: 05/21/24 Preop [place] gnosis: Labor pain Proposed Procedure: Operation Date: 05/21/24 12:40 Proposed Procedures p Post Bilateral Tubal Ligation(Not Applicable) - Rachana Mederos MD Any changes to Pre-Anesthetic Assessment?: No Last Intake: > 8 hrs Labs Last 48hrs: Short CBC 05/19/24 05/20/24 Range/Units 23:20 13:45 WBC 8.40 10.11 (3.29-11.43) 10^ 3/uL Hgb 11.70 11.30 (11.27-16.99) g/ dL Hct 37.0 34.9 L (36-47) % MCV 84.9 L 83.7 L (85-98) fl Plt Count 268 267 (157-399) 10^3/c mm Neut % (Auto) 69.7 % Neut # (Auto) 5.86 (1.8-7.7) 10^3/u L Blood Bank 05/19/24 23:20 Blood Type A Positive Rho(D) Type Rh positive Antibody Screen Negative Vitals: Temperature 98.3 F 05/21/24 10:03 Temperature Source Oral 05/21/24 10:03 Pulse Rate 70 05/21/24 10:03 Respiratory Rate 16 05/21/24 10:03 Respiratory Effort Spontaneous, Non- Labored 05/20/24 00:42 Respiratory Depth Normal 05/20/24 00:42 Respiratory Patter n Normal 05/20/24 00:42 Blood Pressure 119/77 05/21/24 10:03 Blood Pressure Martha n 91 05/21/24 10:03 Blood Pressure Pos ition Sitting 05/21/24 10:03 Pulse Oximetry 98 05/21/24 10:03 Oxygen Delivery Me thod Room Air 05/21/24 10:03 Exam: Pre-Anes Outpt Exam: alert, oriented x 3, clear to auscultation bilaterally and regular rate & rhythm Other Pertinent Information: Other Pertinent Information: Chipped tooth L side Cardiac Studies: No Data to Display
--- NOTE | 2024-05-21 14:33 | P.OP_ITS ---
Operative Report Date of procedure: May 21, 2024 Pre-op diagnosis: Desired permanent surgical sterilization Procedure done: bilateral tubal ligation Specimens removed/disposition: Segments of right and left fallopian tubes Pathology: Segments of right and left fallopian tubes Surgeon: Rachana Mederos MD Estimated blood loss: Less than 5 mL IV fluids (mL): 500 Complications: None Procedure: After informed consent the patient was taken to the OR where general anesthesia was administered. She was prepped and draped in normal sterile fashion in dorsal supine position. A curvilinear infraumbilical incision was made and carried through to the underlying layer of fascia bluntly using a hemostat. The fascia was then grasped with Allis clamps and entered sharply using the [place]. The rectus muscles were then bluntly and the peritoneum was entered digitally. Omentum was pushed out of the way using a sponge stick and a malleable. The left fallopian tube was then grasped with a [place] and brought into the operative field. A distal portion of the tube was ligated and excised. Cut portions of the tube were coagulated using the Bovie. There was good hemostasis. Specimen was sent to pathology. Tubal ostia were visualized. After hemostasis was obtained to the cut portions of the tube were then returned to the abdomen. The right fallopian tube was then grasped with a [place] and brought into the operative field. A distal portion of the tube was ligated and excised. Tubal ostia were visualized. Segment of the tube was sent to pathology. Cut portions of the tube were coagulated using the Bovie. Hemostasis was obtained. The fascia was then closed using 0 Vicryl in a running fashion. The subcutaneous tissue was irrigated and the subcutaneous tissue was reapproximated using 4-0 Vicryl in a running fashion. The skin was then reapproximated using 4-0 Vicryl in a running fashion. Steri-Strips and a pressure bandage were applied and patient went to recovery in good condition.
--- NOTE | 2024-05-21 14:37 | PM.DCS ---
Discharge Providers Date of Admission: 05/20/24 00:01 Date of Discharge: May 21, 2024 Attending Provider at Admission: Rachana Mederos MD Attending Provider at Discharge: Rachana Mederos MD Primary Care Provider: Rachana Mederos MD Diagnoses at Discharge Discharge Diagnosis (1) Encounter for consultation for female sterilization: Status: Acute (2) (normal spontaneous vaginal delivery): Status: Acute Reason for Visit Reason for Visit: possible ROM, ctx Hospital Course Hospital Course This is a 24-year-old G3 now P3 who was admitted in active labor and had a normal spontaneous vaginal delivery of a viable male infant. Mother and infant were doing well after delivery. On day #1 she underwent a bilateral tubal ligation. There were no complications of the procedure. The the patient had an unremarkable postoperative recovery and was discharged home. Physical Exam Narrative: Alert and oriented, walking around the room, heart regular rate and rhythm, lungs clear to auscultation bilaterally, abdomen is soft and nontender, extremities have 1+ edema but no calf tenderness Discharge Data Studies Completed and Pending Pending at discharge Category Date Time Status Retype for Patiets ABO/Rh Routine Lab 05/20/24 03:34 Ordered Laboratory Results WBC 10.11 10^3/uL (3.29-11.43) 05/20/24 13:45 RBC 4.17 10^6/uL (3.85-5.65) 05/20/24 13:45 Hgb 11.30 g/dL (11.27-16.99) 05/20/24 13:45 Hct 34.9 % (36-47) L 05/20/24 13:45 MCV 83.7 fl (85-98) L 05/20/24 13:45 MCH 27.1 pg (27-33) 05/20/24 13:45 MCHC 32.4 g/dL (30-55) 05/20/24 13:45 RDW 14.6 % (12.1-15.1) 05/20/24 13:45 Plt Count 267 10^3/cmm (157-399) 05/20/24 13:45 MPV 11.4 fL (7.4-10.4) H 05/20/24 13:45 Neut % (Auto) 69.7 % 05/19/24 23:20 Lymph % (Auto) 20.8 % 05/19/24 23:20 [place] % (Auto) 7.7 % 05/19/24 23:20 Eos % (Auto) 0.4 % 05/19/24 23:20 Baso % (Auto) 0.4 % 05/19/24 23:20 Neut # (Auto) 5.86 10^3/uL (1.8-7.7) 05/19/24 23:20 Lymph # (Auto) 1.8 10^3/uL (0.8-4.8) 05/19/24 23:20 [place] # (Auto) 0.7 10^3/uL (0.2-0.9) 05/19/24 23:20 Eos # (Auto) 0.0 10^3/uL (0.0-0.8) 05/19/24 23:20 Baso # (Auto) 0.0 10^3/uL (0.0-0.1) 05/19/24 23:20 Nucleated RBC % (auto) 0 % 05/19/24 23:20 Nucleated RBCs # 0.0 /100WBC 05/19/24 23:20 Insulin-like GF I Negative 05/19/24 23:08 Blood Type A Positive 05/19/24 23:20 Rho(D) Type Rh positive 05/19/24 23:20 Antibody Screen Negative 05/19/24 23:20 Vitals Last Vital Signs Temp 98.3 F 05/21/24 10:03 Pulse 70 05/21/24 10:03 Resp 16 05/21/24 10:03 BP 119/77 05/21/24 10:03 Pulse Ox 98 05/21/24 10:03 O2 Del Method Room Air 05/21/24 10:03 Discharge Plan Discharge Patient Disposition: Home Condition: Stable Prescriptions: New ibuprofen 800 mg Tablet 800 mg PO TID PRN (Reason: Abdominal Discomfort) Qty: 40 0RF docusate sodium 100 mg Capsule 100 mg PO BID Qty: 60 0RF hydrocodone-acetaminophen 5-325 mg tablet 1 tab PO Q4H PRN (Reason: pain) Qty: 10 0RF Continued vit,[id number] 29 mg iron- 1 mg Tablet 1 tab PO DAILY Discharge Orders: Discharge Order (Routine); Ordered 05/21/24 Ordered By: Rachana Mederos Referrals: Rachana Mederos MD [Primary Care Provider] - 1-3 days (Tu) Discharge Diet: Usual diet Discharge Activity: Limit activity as instructed Patient Instructions: Depression (DC), Bleeding (DC), Preeclampsia and Eclampsia After Delivery (GEN), Hemorrhage (DC), OB Discharge Report, OB Food/Drug Interaction Guide, Opioid Safety, OB Home Care, OB Proud Parent Packet, OB Vaginal Deliveries Activity Restrictions/Additional Instructions: No lifting greater than 10 pounds for 2 weeks. Keep incision site clean and dry. Discharge Attestations Time Spent in Discharge Care*: less than 30 min Quality Metrics Clinical Quality Measures [ No reported AMI, CVA or VTE this stay] Coding Level of Care Code Acute Code for Chg Fwd Diagnoses Encounter for consultation for female sterilization Z30.09 (normal spontaneous vaginal delivery) O80
--- NOTE | 2024-05-21 15:30 | ANE.PACU2 ---
Inpatient post-anesthesia follow up: Airway intact: Yes Vital signs: Temperature 98.5 F Pulse Rate 62 Respiratory Rate 16 Blood Pressure 137/81 Pulse Oximetry 98 Oxygen Delivery Me thod Room Air Oxygen Flow Rate Fraction of Inspir ed Oxygen Hydration adequate: Yes Nausea and vomiting: No Pain level: 1 Mental status: Baseline
--- NOTE | 2024-05-21 16:30 | PC.NURSE ---
pt ambulated to OB OR at 1333
--- NOTE | 2024-05-21 16:30 | PC.NURSE ---
pt in OB OR from 1335 until 1525
== END 2024-05-21 17:25 | disposition home or self-care (01) | DRG 798 ==
LOC: OPOB 00:02 → OBGYN 00:02
PROVIDERS: Admitting Provider Family Medicine; PCP Family Medicine; Visit Provider Family Medicine
PROC: 0UB73ZZ Excision of Bilateral Fallopian Tubes, Percutaneous Approach (ICD-10-PCS; CPT 58605; principal; 2024-05-21 12:30)
DX: O80 Encounter for full-term uncomplicated delivery (principal); Z37.0 Single live birth; Z3A.38 38 weeks gestation of pregnancy; Z30.2 Encounter for sterilization
CPT/HCPCS: 36415; 59025; 59409; 83986; 84112; 85025; 85027; 86850; 86900; 88302; 96374; 99211; J0330; J1100; J1885; J2250; J2405; J2590; J2704; J2765; J2795; J3010; J3490; J7120; J7121